=== PATIENT | female | born 1945 | race Caucasian/White ===

== ENCOUNTER 2020-01-19 18:18 | Emergency (ER) | payer MEDICARE, SELFPAY ==
--- NOTE | 2020-01-19 | ECG_ITS ---
Measurements Intervals [place] Rate: 74 P: 11 KS: 166 QRS: -24 QRSD: 85 T: 28 QT: 362 QTc: 404 Interpretive Statements SINUS RHYTHM WITH MARKED SINUS ARRHYTHMIA DELAYED PRECORDIAL R/S TRANSITION LOW QRS VOLTAGE IN PRECORDIAL LEADS BORDERLINE ECG Electronically Signed On 01-20-2020 7:22:43 PRODUCTION DESIGNER by Carlos Tomas D.O.
--- NOTE | ~2020-01-19 | XR_ITS ---
EXAMINATION: XR chest 1V portable DATE: 01/19/2020 18:45 INDICATION: Shortness of breath, cough, fever and weakness TECHNIQUE: frontal view of the chest was obtained. COMPARISON: Chest radiograph dated 02/08/2019 FINDINGS: Chronic mild eventration along the right hemidiaphragm. Bronchial wall thickening and increased prima rily interstitial pattern in the bilateral perihilar regions and lower lung zones. No focal airspace opacity in the left lower lung zone projecting across the heart. No pleural effusion or pneumothorax. The cardiomediastinal silhouette is normal. Cholecystectomy clips in right upper quadrant. Moderate thoracolumbar spondylosis. IMPRESSION: 1. Bronchial wall thickening and increased predominantly interstitial opacities in bilateral perihila r and lower lung zones. Differential would include pneumonia, pulmonary edema, reactive airway diseas e/asthma, atelectasis or some combination thereof. Reviewed, dictated and finalized at [facility]. S PLANNING ANALYST IMPRESSION: 1. Bronchial wall thickening and increased predominantly interstitial opacities in bilateral perihilar and lower lung zones. Differential would include pneumo brandon, pulmonary edema, reactive airway disease/asthma, atelectasis or some combi nation thereof.
--- NOTE | ~2020-01-19 | CT_ITS ---
EXAMINATION: CT brain wo con DATE: 01/19/2020 19:40 INDICATION: Fever with lethargy and weakness. TECHNIQUE: Computed tomography (CT) of the head was performed without intravenous contrast. Sagittal and coronal reconstructions were performed. The mA was adjusted according to patient size. Iterative reconstruction technique was employed. The dose-length product was 681.00 mGy-cm. COMPARISON: head CT dated 02/08/2019 FINDINGS: No acute intracranial hemorrhage, acute infarction or abnormal extra axial fluid collection. There is mild scattered white matter hypoattenuation consistent with chronic small vessel ischemic disease. S ymmetric prominence of the sulci consistent with mild age-appropriate diffuse cerebral volume loss. Ventricles are normal and symmetric. No mass/mass effect. Changes of bilateral intraocular lens repla cement. Partial opacification of an anterior right ethmoid air cell. Mastoid air cells and middle ear cavities are clear. IMPRESSION: 1. No acute intracranial process. 2. Age-related changes including mild diffuse on loss and mild scattered white matter hypoattenuation consistent with chronic small vessel ischemic disease. Reviewed, dictated and finalized at location H. ETARY SPECIALIST
[2020-01-19 18:17] VITALS: BP 115/57; PULSE 77; RESP 17; TEMP 36.9; O2SAT 97
[2020-01-19 18:26] VITALS: PULSE 80
--- NOTE | 2020-01-19 18:27 | PC.NURSE ---
Doris Arreguin (daughter)
[2020-01-19 18:39] LABS: Basophils Percent Auto 0.4 % (0.2-1.2); Eosinophils Absolute Auto 0.1 K/mm3 (0-0.3); Hematocrit 34.9 % (37.0-47.0); Hemoglobin 11.3 g/dL (12.0-15.0); Immature Granulocyte Absolute 0.02 K/mm3 (0.00-0.031); Immature Granulocyte Percent A 0.3 % (0-0.5); Lymphocytes Absolute Auto 1.15 K/mm3 (0.9-3.2); Lymphocytes Percent Auto 16.6 % (18.3-44.2); Mean Corpuscular HGB Conc 32.4 g/dl (32-36); Mean Corpuscular Volume 86.4 fl (80-100); Mean Platelet Volume 10.3 fl (7.4-10.4); Monocytes Absolute Auto 0.8 K/mm3 (0.1-0.6); Monocytes Percent Auto 11.1 % (2.6-8.5); Neutrophils Absolute Auto 4.9 K/mm3 (1.3-6.7); Neutrophils Percent Auto 70.6 % (45.5-73.1); Platelet Count Result 172 k/mm3 (150-375); Red Blood Count 4.04 M/mm3 (4.2-5.4); Red Cell Distribution Width 13.5 % (11.5-14.5); White Blood Count 6.9 K/mm3 (4.5-10.0)
[2020-01-19 18:46] VITALS: BP 111/62; PULSE 82; RESP 26
[2020-01-19 18:52] LABS: Alanine Aminotransferase 16 U/L (4-35); Albumin Level 4.3 g/dL (3.5-5.1); Alkaline Phosphatase 66 U/L (38-126); Anion Gap 10 mmol/L (8-16); Aspartate Amino Transferase 27 U/L (14-36); Bilirubin,Total 0.1 mg/dL (0.2-1.3); Blood Urea Nitrogen 17 mg/dL (7-17); Calcium 9.5 mg/dL (8.4-10.2); Carbon Dioxide 24 mmol/L (22-30); Chloride 105 mmol/L (98-107); Estimated Glomerular Filt Rate > 60; Glucose 171 mg/dL (65-105); Potassium 4.2 mmol/L (3.4-5.0); Sodium 139 mmol/L (137-145)
--- NOTE | 2020-01-19 19:12 | ED.GENADULT ---
HPI - General Adult General Chief complaint: Unspecified Stated complaint: WEAKNESS Time Seen by Provider: 01/19/20 18:28 Source: patient History of Present Illness HPI narrative: Patient is a 74 y/o female complaining of severe generalized weakness starting 1-2 hours ago. There is no alleviating or exacerbating factor. She states that she had difficulty with standing up. She is normally able to ambulate with a cane. She has nausea, but not vomiting. She denies any chest pain, SOB or passing out. She was tested for COVID today. Related Data Home Medications Medication Instructions Recorded Confirmed insulin glargine [Lantus Solostar SUBCUT 01/19/20 U-100 Insulin] lisinopril 01/19/20 metformin mg 01/19/20 sertraline mg 01/19/20 simvastatin mg 01/19/20 Allergies Allergy/AdvReac Type Severity Reaction Status Date / Time hydrocodone AdvReac Intermediate Unknown Verified 01/19/20 18:21 Review of Systems Constitutional: Constitutional: Denies chills, Denies fever(s), Denies headache(s) and Reports weakness Eyes: Eyes: Denies blurry vision ENT: Denies headache(s) and Denies neck pain Cardiovascular: Cardiovascular: Denies chest pain and Denies dyspnea Respiratory: Respiratory: Denies cough and Denies dyspnea Gastrointestinal: Gastrointestinal: Denies abdominal pain, Denies diarrhea, Reports nausea and Denies vomiting Genitourinary: Genitourinary: Denies hematuria and Denies dysuria Musculoskeletal: Musculoskeletal: Reports back pain and Denies neck pain Neurologic: Denies headache(s) and Reports weakness PMFSH Past Medical History Medical History Depression Diabetes Pneumonia Wrist fracture Surgical History Surgical History History of cholecystectomy Social History Social History Smoking status: Never smoker Gender identity (if verbalized by the patient): Female Exam Const: General: no acute distress and well developed Orientation/consciousness: oriented to person, oriented to place, oriented to time and patient oriented x3 HENMT: Head: normocephalic Ears: external ears normal General nose exam: Normal external nose present Eyes: General: appearance normal, both eyes and all related structures Conjunctivae: conjunctivae normal Neck: Neck: normal visual inspection and full ROM Chest: Chest palpation & inspection: normal inspection of the chest and no tenderness Resp: Effort & Inspection: normal respiratory effort Auscultation: clear to auscultation bilaterally Cardio: Rate: regular rate Rhythm: regular rhythm GI: GI Palp: No abdominal tenderness and Yes Soft to palpation Skin: General skin exam: normal color and turgor normal Neuro: General: oriented to person, oriented to place, oriented to time and patient oriented x3 Cognition (Neuro): normal cognition Extrem: General: normal to inspection, full ROM and no pedal edema Psych: Appearance: grossly normal Mental Status: mental status grossly normal Affect: normal affect Course Vital Signs Vital signs: Vital Signs Temperature 36.9 C 01/19/20 18:17 Pulse Rate 77 01/19/20 18:17 Respiratory Rate 17 01/19/20 18:17 Blood Pressure 115/57 L 01/19/20 18:17 Pulse Oximetry 97 01/19/20 18:17 Temperature 36.9 C 01/19/20 18:17 Pulse Rate 67 01/20/20 00:30 Respiratory Rate 17 01/20/20 00:30 Blood Pressure 114/64 01/20/20 00:30 Pulse Oximetry 98 01/20/20 00:30 Medical Decision Making Vital Signs Vital Signs: Vital Signs Temperature 36.9 C 01/19/20 18:17 Pulse Rate 77 01/19/20 18:17 Respiratory Rate 17 01/19/20 18:17 Blood Pressure 115/57 L 01/19/20 18:17 Pulse Oximetry 97 01/19/20 18:17 Temperature 36.9 C 01/19/20 18:17 Pulse Rate 67 01/20/20 00:30 Respiratory Rate 17 01/20/20 00:30 Blood Pressure
[2020-01-19 19:42] LABS: Add Urine Microscopic? YES; Appearance Urine Cloudy (Clear); Bacteria Urine Trace /hpf; Bilirubin Urine Negative (Negative); Blood Urine Negative (Negative); Color Urine Yellow (Yellow); Glucose Urine UA Negative (Negative); Ketones Urine Trace mg/dL (Negative); Leukocyte Esterase Ur Negative LEU/UL (Negative); Mucus Urine Rare /lpf; Nitrate Urine Positive (Negative); Protein Urine Negative (Negative); RBC Urine 0-2 /hpf (0-2); Specific Grav Ur 1.019 (1.001-1.035); Squamous Epithelial Cell Urine Many /hpf (Few); Urobilinogen Urine Negative mg/dL (<2.0); WBC Urine 0-3 /hpf
[2020-01-19 22:06] LABS: D Dimer 0.33 ug/mL (<0.48)
[2020-01-19 22:41] LABS: Troponin I < 0.012 ng/mL (0.000-0.034)
[2020-01-19 23:45] VITALS: BP 126/48
[2020-01-20 00:30] VITALS: BP 114/64; PULSE 62; PULSE 67; RESP 16; RESP 17; O2SAT 98
--- NOTE | 2020-01-20 01:06 | PC.NURSE ---
2330 pt. in no acute distress, skin signs and respirations WNL. Awaiting dispo.
== END 2020-01-20 00:30 | disposition home or self-care (01) ==
PROVIDERS: Family Medicine; Emergency Provider Emergency Medicine
DX: R53.1 Weakness (principal); F32.9 Major depressive disorder, single episode, unspecified; E11.9 Type 2 diabetes mellitus without complications; Z79.4 Long term (current) use of insulin
CPT/HCPCS: 36415; 70450; 71045; 80053; 81001; 84484; 85025; 85380; 93005; 99284

== ENCOUNTER 2020-02-13 13:24 | Emergency (ER) | payer MEDICARE, SELFPAY ==
--- NOTE | ~2020-02-13 | CT_ITS ---
EXAMINATION: CT brain wo con, CT cervical spine wo con EXAM DATE: 02/13/2020 14:52 INDICATION: Fall, head injury. TECHNIQUE: Spiral CT of the head was performed without contrast. Axial, coronal and sagittal images were reviewed. Spiral CT of the cervical spine was performed without contrast. Axial images were rev iewed. Coronal and sagittal reformatted images were also reviewed. The dose-length product (DLP) fo r this examination was 681.00 mGy-cm. The exposure was tailored according to patient size, and itera tive reconstruction (ASIR) was used as additional dose reduction technique. Comparison is made to golden or examination from 01/19/2020. FINDINGS: HEAD CT: There is no acute intraparenchymal hemorrhage. No evidence of intraparenchymal brain mass l esion. No evidence of acute infarction. There is moderate cerebral atrophy. There is no mass effect or midline shift. There is no obstructive hydrocephalus suspected. There are no extra-axial collect ions. There are no acute calvarial fractures. Patient has had bilateral ocular lens surgery. Soft tissue is unremarkable. The visualized sinuses and mastoid air cells are well aerated. CERVICAL CT: Bridging cervical endplate osteophytes from C4 through T1 without break. There is no francisca dence of acute cervical fracture. The odontoid process is intact. Pre-dens space is normal. Prever tebral soft tissue is normal. There are no soft tissue abnormalities identified. There is no disc s pace widening or traumatic vertebral body subluxation suspected. Small amount of ill-defined apical airspace disease. Overall mild to moderate cervical arthropathy. A detailed level by level evaluatio n of spondylosis can be added as addendum if requested. IMPRESSION: 1. No acute intracranial findings or cervical fracture. 2. Small amount of nonspecific biapical airspace disease, could be chronic, but acute edema or pneum onia not excludable. Reviewed, dictated and finalized at location A. UET CHEF IMPRESSION: 1. No acute intracranial findings or cervical fracture. 2. Small amount of nonspecific biapical airspace disease, could be chronic, bu t acute edema or pneumonia not excludable.
--- NOTE | ~2020-02-13 | XR_ITS ---
EXAMINATION: XR elbow RT min 3V EXAM DATE: 02/13/2020 14:28 INDICATION: pain, GENERALIZED PAIN AFTER FALL . Initial encounter. TECHNIQUE: Right elbow frontal, lateral with flexion, and oblique projections obtained and reviewed. There is no prior study for comparison. FINDINGS: Right elbow anterior humeral line intact. There are no acute fractures or dislocations gregorio ntified. There is no subcutaneous gas. The soft tissue is unremarkable. There are no radiopaque f oreign bodies. IMPRESSION: No acute osseous findings. Reviewed, dictated and finalized at location A. IED ANTHROPOLOGIST IMPRESSION: No acute osseous findings.
--- NOTE | ~2020-02-13 | XR_ITS ---
EXAMINATION: XR wrist RT min 3V EXAM DATE: 02/13/2020 14:28 INDICATION: fall , deformity initial encounter. TECHNIQUE: Right wrist frontal, oblique and lateral projections obtained and reviewed. There is no prior study for comparison. FINDINGS: There is acute closed posttraumatic comminuted fracture of the right radial distal metaphys is into the joints. Mild posterior angulation and displacement. There is acute closed posttraumatic u lnar styloid base avulsion which is nondisplaced. There is overlying soft tissue swelling. Bones appe ar osteopenic. IMPRESSION: 1. Acute comminuted right radial distal metaphyseal fracture into joints. 2. Acute nondisplaced ulnar styloid avulsion. Reviewed, dictated and finalized at location A. INSTRUCTOR
[2020-02-13 13:31] VITALS: BP 144/77; PULSE 76; RESP 18; TEMP 36.6; O2SAT 95
--- NOTE | 2020-02-13 13:58 | ED.FALL ---
HPI - Fall General Chief Complaint: Fall Stated Complaint: fall Time Seen by Provider: 02/13/20 13:31 Source: patient Mode of arrival: EMS Limitations: no limitations History of Present Illness HPI Narrative: This patient is a 74 year old female who presents for evaluation of right wrist pain s/p fall. Patient states she was trying to dress when her slippers caused her to fall backwards. She reports he hit the back of her head. She denies LOC, headache, nausea or dizziness. She reports pain to right elbow and right wrist. She reports she takes aspirin daily. Related Data Home Medications Medication Instructions Recorded Confirmed insulin glargine [Lantus Solostar SUBCUT 01/19/20 U-100 Insulin] lisinopril 01/19/20 metformin mg 01/19/20 sertraline mg 01/19/20 simvastatin mg 01/19/20 Allergies Allergy/AdvReac Type Severity Reaction Status Date / Time hydrocodone AdvReac Intermediate Hallucinati Verified 02/13/20 13:40 ng Review of Systems Review of Systems: All systems reviewed & are unremarkable except as noted in HPI and below PMFSH Past Medical History Medical History Depression Diabetes Pneumonia Wrist fracture Surgical History Surgical History History of cholecystectomy Social History Social History Smoking status: Never smoker Gender identity (if verbalized by the patient): Female Exam Const: General: no acute distress and alert Orientation/consciousness: patient oriented x3 HENMT: Head: normocephalic and atraumatic Face and sinus: face symmetric Mouth: Yes Normal oral and palatal mucosa present, Yes lip normal, Yes oropharynx normal and Yes moist mucous membranes Eyes: Pupils: Equal, round and reactive pupils present EOM: EOMs intact bilaterally Neck: Other: in cervical collar Resp: Effort & Inspection: normal respiratory effort and no retractions Auscultation: clear to auscultation bilaterally Cardio: Rate: regular rate Rhythm: regular rhythm Heart sounds: no murmurs GI: GI Palp: Yes Soft to palpation, No Tenderness to palpation present (GI), No Guarding due to palpation present (GI) and No Rigid due to palpation Auscultation: normal bowel sounds Skin: General skin exam: normal color Rashes: no rashes Neuro: General: patient oriented x3 and moves all extremities Extrem: Other: right wrist in splint with wrist deformity and bruising. able to move fingers , sensation intact. palpable radial pulse Psych: Mental Status: mental status grossly normal Affect: normal affect Course Reevaluation(s) Reevaluation #1: Patient was placed in sugar tong splint. She is able to ambulate without assistance Date: 02/13/20 Time: 17:16 Consultations Consultation #1: I discussed xray with Dr. Gaines. He recommends placing in splint and to follow up as an outpatient. Date: 02/13/20 Time: 15:36 Vital Signs Vital signs: Vital Signs Temperature 97.8 F 02/13/20 13:31 Pulse Rate 76 02/13/20 13:31 Respiratory Rate 18 02/13/20 13:31 Blood Pressure 144/77 H 02/13/20 13:31 Pulse Oximetry 95 02/13/20 13:31 Temperature 97.9 F 02/13/20 17:57 Pulse Rate 69 02/13/20 17:57 Respiratory Rate 18 02/13/20 17:57 Blood Pressure 137/80 02/13/20 17:57 Pulse Oximetry 99 02/13/20 17:57 Procedures Orthopedic Splinting/Casting Injury #1: Splinting/Casting Date: 02/13/20 Splinting/Casting Time: 16:00 Side: right Upper Extremity Injury Location: wrist Upper Extremity Immobilizer: sugar tong splint Splint: customized in ED OCL: short arm Pre-Procedure Neuro Vascular Exam: normal Post-Procedure Neuro Vascular Exam: normal MDM - Fall Imaging Data Radiologist's impression: ITS Impressions Wrist X-Ray 02/13/20 14:39 IMPRESSION:
[2020-02-13 15:32] VITALS: BP 143/77; PULSE 74; RESP 18; O2SAT 100
[2020-02-13 17:57] VITALS: BP 137/80; PULSE 69; RESP 18; TEMP 36.6; O2SAT 99
== END 2020-02-13 18:02 | disposition home or self-care (01) ==
PROVIDERS: Emergency Provider General Practice; PCP Family Medicine
DX: S59.291A Other physeal fracture of lower end of radius, right arm, initial encounter for closed fracture (principal); S52.614A Nondisplaced fracture of right ulna styloid process, initial encounter for closed fracture; Z86.19 Personal history of other infectious and parasitic diseases; F32.9 Major depressive disorder, single episode, unspecified; E11.9 Type 2 diabetes mellitus without complications; Z79.4 Long term (current) use of insulin; Z79.82 Long term (current) use of aspirin; W01.0XXA Fall on same level from slipping, tripping and stumbling without subsequent striking against object, initial encounter
CPT/HCPCS: 29125; 70450; 72125; 73080; 73110; 96365; 99284; A4565; J0131

== ENCOUNTER 2020-02-29 13:51 | Outpatient (CLI) | payer MEDICARE, SELFPAY ==
--- NOTE | ~2020-02-29 | CT_ITS ---
EXAMINATION: CT abdomen pelvis w con DATE: 02/29/2020 14:35 INDICATION: Abnormal weight loss TECHNIQUE: Computed tomography (CT) of the abdomen and pelvis was performed with 100 cc Omnipaque 350 intravenous contrast. The dose-length product was 437.93 mGy-cm. Automated exposure control and iter ative reconstruction technique were employed. COMPARISON: None. FINDINGS: Bibasilar dependent atelectasis. Heart size normal. No significant pleural or pericardial e ffusion. There is atherosclerosis of the aorta without aneurysm. No lymphadenopathy. Status post cholecystectomy with expected prominence of the bile ducts. Fatty infiltration of the reza er. There are calcified granulomas of the spleen. There is pancreatic atrophy with pancreatic calcifi cations, consistent with chronic pancreatitis. The adrenal glands and left kidney are unremarkable. T here are right renal cysts, largest measuring 4.8 cm. Moderate osteoarthritis of the hips. Moderate-s evere lumbar spondylosis. No osteolytic or osteoblastic lesions. Nonobstructive bowel gas pattern. Colonic diverticulosis without evidence for diverticulitis. IMPRESSION: 1. No acute abdominal abnormality. No findings to account for patient's symptoms. Reviewed, dictated and finalized at location A. RETE BLOCK MAKER IMPRESSION: 1. No acute abdominal abnormality. No findings to account for patient's symptom s.
[2020-02-29 14:28] LABS: Estimated Glomerular Filt Rate > 60
== END 2020-02-29 13:52 | disposition home or self-care (01) ==
DX: R63.4 Abnormal weight loss (principal)
CPT/HCPCS: 74177; Q9967

== ENCOUNTER 2021-06-01 16:07 | Inpatient (IN) | payer MEDICARE, SELFPAY ==
[2021-06-01] VITALS (16 sets, daily range): BP systolic 121–142; BP diastolic 56–73; PULSE 70–91; RESP 18–27; TEMP 35.9–36.6; O2SAT 96–100; BMI 30.9
--- NOTE | ~2021-06-01 | XR_ITS ---
EXAMINATION: XR chest 1V portable DATE: 06/05/2021 08:19 INDICATION: Pneumonia. TECHNIQUE: A single frontal view of the chest was obtained. COMPARISON: Chest single view 06/01/2021, CT abdomen and pelvis 06/04/2021 FINDINGS: There are airspace opacities at the lung bases. There are small pleural effusions. No pneum othorax. The heart size is normal. IMPRESSION: 1. Worsened airspace opacities at the lung bases, consistent with atelectasis versus pneumonia. 2. Stable small pleural effusions. Reviewed, dictated and finalized at location A. IMPRESSION: 1. Worsened airspace opacities at the lung bases, consistent with atelectasis v ersus pneumonia. 2. Stable small pleural effusions.
--- NOTE | ~2021-06-01 | XR_ITS ---
EXAMINATION: XR chest 1V portable DATE: 06/01/2021 16:56 INDICATION: Cough. Generalized weakness and dizziness. TECHNIQUE: 01/19/2020 COMPARISON: None FINDINGS: Opacities at the left costophrenic angle with configuration favoring atelectasis over pneumonia. No p ulmonary edema, pleural effusion or pneumothorax. The cardiomediastinal silhouette is normal. Cholecy stectomy clips in right upper quadrant. IMPRESSION: 1. Opacities in the left costophrenic angle and favor lingular atelectasis over pneumonia. Reviewed, dictated and finalized at location B.
--- NOTE | ~2021-06-01 | XR_ITS ---
EXAMINATION: XR chest 1V portable INDICATION: Pneumonia TECHNIQUE: Portable AP chest at 0541 hours COMPARISON: 06/05/2021 FINDINGS: Bibasilar airspace opacities persist but have improved. Small pleural effusions are stable. There is no pneumothorax. The cardiomediastinal silhouette is normal. A healed left proximal humerus fracture is noted. IMPRESSION: 1. Improved bibasilar airspace opacities, consistent with atelectasis versus pneumonia. 2. Small pleural effusions. Reviewed, dictated and finalized at location A. IMPRESSION: 1. Improved bibasilar airspace opacities, consistent with atelectasis versus pn eumonia. 2. Small pleural effusions.
--- NOTE | ~2021-06-01 | CT_ITS ---
EXAMINATION: CT abdomen pelvis wo con EXAM DATE: 06/04/2021 11:18 INDICATION: Abdominal pain. Decreased appetite. TECHNIQUE: Spiral CT of the abdomen and pelvis was performed without contrast. Axial, coronal and s agittal images of the abdomen and pelvis were reviewed. The dose-length product (DLP) for this exami nation was 971.14 mGy-cm. The exposure was tailored according to patient size (auto mA exposure cont rol), and iterative reconstruction (ASIR) was used as additional dose reduction technique. Comparison is made to prior examination from 02/29/2020. FINDINGS: The liver, spleen, adrenal glands and pancreas are unremarkable. There are cholecystectom y clips. There is no nephrolithiasis or hydronephrosis. There are 2 right renal cysts up to 4 cm. No ureteral stones. The uterus is unremarkable. The bladder is unremarkable. There is no retroperit cueva or pelvic lymphadenopathy. The appendix is not positively visualized. There is no pericecal inflammatory change to suggest appe ndicitis. There is moderate sigmoid predominant colonic diverticulosis. There is no adjacent inflam matory change to suggest diverticulitis. The stomach and small bowel are unremarkable. There is e xpected amount of colonic stool. No free intraperitoneal gas. There is small pericardial effusions. There is adjacent dependent subsegmental atelectasis. Heart normal in size. No pericardial effusion. There are no osteoblastic or osteolytic lesions identified. Large hemangioma within T10 vertebral b mike. IMPRESSION: 1. Moderate sigmoid predominant diverticulosis. 2. Small pleural effusions, adjacent subsegmental atelectasis. Reviewed, dictated and finalized at location A.
--- NOTE | ~2021-06-01 | CT_ITS ---
EXAMINATION: CT brain wo con DATE: 06/01/2021 16:53 INDICATION: Headache. Generalized weakness. Intermittent dizziness. TECHNIQUE: Computed tomography (CT) of the head was performed without intravenous contrast. The mA wa s adjusted according to patient size. Iterative reconstruction technique was employed. Exam dose: 60 5.33 mGy-cm total exam DLP. COMPARISON: 02/13/2020 CT brain FINDINGS: Bilateral carotid siphon internal carotid artery calcifications. There is nonspecific dimin ished attenuation of the cerebral white matter, likely due to chronic small vessel ischemic changes. There is moderately prominent cerebral and cerebellar volume loss. No intracranial mass lesion or hemorrhage or cerebrovascular accident is detected. There is no midlin e shift or mass effect effect. No subdural or epidural hematoma. No fracture or bone destruction of the cranial vault. The mastoid air cells and included paranasal si nuses are unremarkable. IMPRESSION: Cerebral atherosclerosis and chronic small vessel ischemic changes of the cerebral white matter Moderate cerebral and cerebellar volume loss No acute intracranial finding or significant change since 02/12/2020 Reviewed, dictated and finalized at Location [facility]. Reviewed, dictated and finalized at location A.
--- NOTE | 2021-06-01 16:19 | ECG_ITS ---
Measurements Intervals [place] Rate: 88 P: -4 NE: 149 QRS: -23 QRSD: 90 T: 10 QT: 319 QTc: 387 Interpretive Statements SINUS RHYTHM WITH SINUS ARRHYTHMIA BORDERLINE LEFT AXIS DEVIATION [QRS AXIS < -20] BORDERLINE ECG COMPARED TO ECG 01/19/2020 18:24:28 NO SIGNIFICANT CHANGES Electronically Signed On 06-02-2021 11:09:36 CDT by Linus Alcantara M.D.
--- NOTE | 2021-06-01 16:20 | ED.WEAKNESS ---
HPI - Weakness General Chief complaint: Weakness Stated complaint: weakness Time Seen by Provider: 06/01/21 16:11 Source: patient and family History of Present Illness HPI Narrative: Patient presents with generalized weakness. Patient reports she has been ill and weak for the past few days with a mild cough today she really has an 8-month so she is brought to the ER for evaluation. Patient does report a headache over this time she has not noted fevers. There have not been any known sick contacts she denies nausea but does report decreased appetite. She denies any chest pain or abdominal pain she denies any diarrhea or urinary symptoms she denies any focal weakness. Patient reports she has been unable to walk because she is too weak Related Data Home Medications Medication Instructions Recorded Confirmed insulin glargine [Lantus Solostar SUBCUT 01/19/20 U-100 Insulin] lisinopril 01/19/20 metformin mg 01/19/20 sertraline mg 01/19/20 simvastatin mg 01/19/20 Allergies Allergy/AdvReac Type Severity Reaction Status Date / Time hydrocodone AdvReac Intermediate Hallucinati Verified 06/01/21 16:20 ng Review of Systems Review of Systems: CONSTITUTIONAL: Denies fever, chills, or sweats. EYES: Denies visual changes, redness, or discharge. ENT: Denies rhinorrhea, congestion, sore throat, or otalgia. CARDIOVASCULAR: Denies chest pain, palpitations, or edema. RESPIRATORY: Denies dyspnea. GASTROINTESTINAL: Denies abdominal pain, nausea, vomiting, or diarrhea. GENITOURINARY: Denies dysuria or hematuria. SKIN: Denies rash or itching. MUSCULOSKELETAL: Denies back pain, joint pain, or myalgia. NEUROLOGIC: Denies numbness, dizziness, or focal weakness. PSYCHIATRIC: Denies anxiety or depression. PMFSH Past Medical History Medical History Depression Diabetes Pneumonia Wrist fracture Surgical History Surgical History History of cholecystectomy Social History Social History Smoking status: Never smoker Gender identity (if verbalized by the patient): Female Exam Narrative: GENERAL: Well-appearing, well-nourished, and in no acute distress. HEAD: Normocephalic, atraumatic. EYES: PERRLA and EOMI. ENT: Nares clear, no rhinorrhea or epistaxis. Mucous membranes moist. NECK: Supple. No masses. No JVD CHEST: Clear to auscultation. No respiratory distress. No wheezes rales or rhonchi HEART: Regular rate and rhythm. No murmur heard. Normal peripheral pulses. ABDOMEN: Soft, nontender, nondistended, normal active bowel sounds. EXTREMITIES: Normal range of motion. No edema. SKIN: Warm, dry, no rash. NEURO: No focal deficits. Alert and oriented x3. PSYCH: Normal mood and affect. Course Reevaluation(s) Reevaluation #1: Patient resting comfortably results and plan reviewed with patient and family patient family are comfortable inpatient plan. Patient will be admitted to the hospitalist team for further management. Date: 06/01/21 Time: 17:36 Vital Signs Vital signs: Vital Signs Pulse Rate 78 06/01/21 16:14 Respiratory Rate 19 06/01/21 16:14 Blood Pressure 134/73 06/01/21 16:14 Pulse Oximetry 98 06/01/21 16:14 Temperature 36.6 C 06/01/21 17:30 Pulse Rate 79 06/01/21 18:30 Respiratory Rate 22 H 06/01/21 18:30 Blood Pressure 123/66 06/01/21 17:46 Pulse Oximetry 100 06/01/21 18:15 MDM - Weakness MDM Narrative Medical decision making narrative: Patient presented with generalized weakness getting progressively worse and difficulty ambulating today due to the severity of her weakness. Patient did not appear to be in any acute distress exam was reassuring labs and imaging obtained. Labs notable for leukocytosis and significant elevation in creatinine like representing acute kidney injury UA was also concerning for infe
[2021-06-01 16:28] LABS: Glucose Point of Care 418 mg/dl (65-105)
[2021-06-01 16:42] LABS: Alveolar/Arterial O2 Gradient 47.8 mmHg; Base Excess ABG -3.3 mEq/l (+/-2.0); Fractional Inspired Oxygen 21 %; HCO3 ABG 20.2 mEq/l (22.0-26.0); Oxygen Content ABG 15.1 %vol (16.0-22.0); Oxygen Saturation ABG 93.5 % (95.0-100.0); Oxyhemoglobin 92.6 % THb (90.0-100.0); PCO2 ABG 31.1 mmHg (35.0-45.0); PO2 ABG 64.7 mmHg (80.0-100.0); PO2 FiO2 Ratio Arterial Blood 3.08 %; Total Hemoglobin 11.6 g/dL (12.0-18.0)
[2021-06-01 16:43] LABS: Basophils Absolute Auto 0.1 K/mm3 (0.0-0.1); Basophils Percent Auto 0.3 % (0.2-1.2); Eosinophils Percent Auto 0.1 % (0-4.4); Hematocrit 39.3 % (37.0-47.0); Hemoglobin 12.2 g/dL (12.0-15.0); Immature Granulocyte Absolute 0.16 K/mm3 (0.00-0.031); Immature Granulocyte Percent A 0.8 % (0-0.5); Immature Platelet Fraction Pct 3.4 % (0.9-11.2); Lymphocytes Absolute Auto 0.74 K/mm3 (0.9-3.2); Lymphocytes Percent Auto 3.9 % (18.3-44.2); Mean Corpuscular Hemoglobin 26.9 pg (26-34); Mean Corpuscular Volume 86.8 fl (80-100); Mean Platelet Volume 10.6 fl (7.4-10.4); Monocytes Absolute Auto 1.2 K/mm3 (0.1-0.6); Monocytes Percent Auto 6.1 % (2.6-8.5); Neutrophils Absolute Auto 16.8 K/mm3 (1.3-6.7); Neutrophils Percent Auto 88.8 % (45.5-73.1); Platelet Count Result 239 k/mm3 (150-375); Red Blood Count 4.53 M/mm3 (4.2-5.4); Red Cell Distribution Width 12.3 % (11.5-14.5)
[2021-06-01 16:46] LABS: Device ROOM AIR; Site Drawn LEFT BRACHIAL
[2021-06-01 16:50] LABS: Lactic Acid Reflex 1.8 mmol/L (0.7-2.1)
[2021-06-01 16:52] LABS: Alanine Aminotransferase 13 U/L (4-35); Albumin Level 3.8 g/dL (3.5-5.1); Alkaline Phosphatase 199 U/L (38-126); Anion Gap 13 mmol/L (8-16); Aspartate Amino Transferase 20 U/L (14-36); Bilirubin,Total 0.7 mg/dL (0.2-1.3); Blood Urea Nitrogen 44 mg/dL (7-17); Calcium 9.6 mg/dL (8.4-10.2); Carbon Dioxide 18 mmol/L (22-30); Chloride 97 mmol/L (98-107); Estimated CRCL calculation 17 ml/min; Estimated Glomerular Filt Rate 21; Glucose 402 mg/dL (65-110); Magnesium 2.1 mg/dL (1.6-2.3); Potassium 3.9 mmol/L (3.4-5.0); Sodium 128 mmol/L (137-145)
--- NOTE | 2021-06-01 16:53 | PC.NURSE ---
Patient off unit to radiology for head CT.
[2021-06-01 16:54] LABS: Ovalocytes 1+ (NORMAL); Platelet Estimate Adequate (Adequate)
[2021-06-01] MEDS: SODIUM CHLORIDE 0.9% IV 500 ML 999 ML IV CONT (17:08)
[2021-06-01] MEDS: SODIUM CHLORIDE 0.9% IV 1,000 ML 999 ML IV CONT (17:08)
[2021-06-01 17:36] LABS: Add Urine Microscopic? YES; Appearance Urine Cloudy (Clear); Bacteria Urine 4+ /hpf; Bilirubin Urine Negative (Negative); Blood Urine 2+ (Negative); Color Urine Yellow (Yellow); Glucose Urine UA 3+ mg/dL (Negative); Ketones Urine Negative (Negative); Leukocyte Esterase Ur 3+ LEU/UL (Negative); Mucus Urine Rare /lpf; Nitrate Urine Positive (Negative); Protein Urine 2+ mg/dL (Negative); Specific Grav Ur 1.011 (1.001-1.035); Squamous Epithelial Cell Urine Rare /hpf (Few); Urobilinogen Urine Negative mg/dL (<2.0); WBC Clumps Urine Present /HPF; WBC Urine >75 /hpf
[2021-06-01 18:29] LABS: Beta-Hydroxybutyrate/Acetoacetate 0.19 mmol/L (0.02-0.27)
--- NOTE | 2021-06-01 18:55 | ADMGEN ---
This patient, Ramila Adrian, was admitted to 2 Medical Room 260-. Patient/family oriented to hospital policies and general routines including ID bracelet, bed and alarms, visiting hours, pain management, procedures, bathroom and other care routines, personal items, smoking policy, room service/diet, and visiting hours. Information on how to activate the Rapid Response Team has been discussed. Patient/Family are encouraged to report perceived risks to care and to ask questions if they do not understand what they are told or what they should do.
[2021-06-01] MEDS: SODIUM CHLORIDE 0.9% IV 1,000 ML 125 ML IV CONT (19:36)
[2021-06-01 20:18] LABS: Glucose Point of Care 276 mg/dl (65-105)
--- NOTE | 2021-06-01 20:49 | PM.IMHP ---
H&P: HPI History of Present Illness Date/Time: Patient was placed observation status for expected length of stay less than 23 hours for management, will plan to re-evaluate tomorrow for improvement. 06/01/21 20:49 Chief Complaint: Generalized weakness Narrative: Ms. Adrian is a 76-year-old female who presented to the emergency room with complaints of generalized weakness. Patient states that she lives with her granddaughter and that over the last week she has been feeling weaker and not been able to ambulate. Patient states that she did fall to her but on Saturday. Patient denies any loss of consciousness, lightheadedness, dizziness, syncopal, or near syncopal episodes. Patient states she felt like her legs would no longer hold her up. Patient denies any dysuria, hematuria, or urgency. Patient states she does feel like she has had frequency over the last few days. Patient denies any fever or chills. Patient states that she has had an occasional cough that will have yellow sputum production. Patient denies any shortness of breath, chest discomfort, orthopnea, or PND. Patient states she does have a known history of diabetes mellitus, CVA, and depression. Patient states she has not been checking her blood glucose level because when she does not feel well she tends not to check it. Upon evaluation emergency room patient's blood glucose was noted to be 402 on chemistry panel. Review of Systems Review of Systems: A 12 point review of systems was completed patient all pertinent positive and negative per HPI the remainder are unremarkable. [facility] Past Medical History Medical History (Updated 06/01/21 @ 21:02 by Mariluz Hunter APRN) Depression Diabetes Fracture of radius, distal, right, closed Pneumonia Wrist fracture Surgical History Surgical History (Updated 06/01/21 @ 20:59 by Mariluz Hunter APRN) History of cholecystectomy History of tubal ligation Family History Family History (Updated 06/01/21 @ 19:20 by Madiha Centeno RN) Father Acute myocardial infarction Mother Bone cancer Hypertension Social History Social History Smoking status: Never smoker Alcohol intake: never Substance use: never Gender identity (if verbalized by the patient): Female Spiritual care concerns: No Meds Home Medications and Allergies Home Medications Medication Instructions Recorded Confirmed Type lisinopril 5 mg PO DAILY 01/19/20 06/01/21 History sertraline 100 mg PO Q12H 01/19/20 06/01/21 History linagliptin [Tradjenta] 5 mg PO DAILY 06/01/21 06/01/21 History Allergies Allergy/AdvReac Type Severity Reaction Status Date / Time hydrocodone AdvReac Intermediate Hallucinati Verified 06/01/21 16:20 ng Vital Signs Vital Signs - 24 hr 06/01/21 16:14 06/01/21 16:20 06/01/21 16:30 Temperature Pulse Rate 78 91 90 Respiratory Rate 19 22 H 27 H Blood Pressure 134/73 Pulse Oximetry 98 97 98 06/01/21 17:02 06/01/21 17:04 06/01/21 17:15 Temperature Pulse Rate 81 82 84 Respiratory Rate 21 H 23 H Blood Pressure 121/56 L Pulse Oximetry 96 98 06/01/21 17:16 06/01/21 17:30 06/01/21 17:31 Temperature 36.6 C Pulse Rate 85 84 83 Respiratory Rate 27 H 25 H 22 H Blood Pressure 123/59 L 131/58 L Pulse Oximetry 98 96 97 06/01/21 17:45 06/01/21 17:46 06/01/21 17:47 Temperature Pulse Rate 77 84 84 Respiratory Rate 24 H 18 24 H Blood Pressure 123/66 Pulse Oximetry 99 100 99 06/01/21 18:00 06/01/21 18:15 06/01/21 18:30 Temperature Pulse Rate 80 81 79 Respiratory Rate 21 H 24 H 22 H Blood Pressure Pulse Oximetry 99 100 06/01/21 19:47 Temperature 35.9 C L Pulse Rate 82 Respiratory Rate 18 Blood Pressure 142/60 H Pulse Oximetry 97 Exam Narrative: Constitutional: Patient is well-nourished in no acute distress. Patient is alert and oriented x3 HEENT: Moist mucous membranes. No scleral ict
[2021-06-01] MEDS: SERTRALINE HCL 50 MG TABLET 100 MG PO (22:13)
[2021-06-01] MEDS: HEPARIN SODIUM 5,000 UNITS/ML VIAL 5000 UNITS SUB-Q (22:14)
[2021-06-02] VITALS (7 sets, daily range): BP systolic 114–128; BP diastolic 44–56; PULSE 77–88; RESP 18–20; TEMP 35.8–37; O2SAT 94–100
[2021-06-02] MEDS: SODIUM CHLORIDE 0.9% IV 1,000 ML 125 ML IV CONT ×2 (04:00→13:40)
[2021-06-02 05:24] LABS: Basophils Absolute Auto 0.1 K/mm3 (0.0-0.1); Basophils Percent Auto 0.3 % (0.2-1.2); Eosinophils Percent Auto 0.2 % (0-4.4); Hematocrit 32.5 % (37.0-47.0); Hemoglobin 10.4 g/dL (12.0-15.0); Immature Granulocyte Absolute 0.26 K/mm3 (0.00-0.031); Immature Granulocyte Percent A 1.3 % (0-0.5); Lymphocytes Absolute Auto 0.91 K/mm3 (0.9-3.2); Lymphocytes Percent Auto 4.6 % (18.3-44.2); Mean Corpuscular Hemoglobin 27.2 pg (26-34); Mean Corpuscular Volume 84.9 fl (80-100); Mean Platelet Volume 10.5 fl (7.4-10.4); Monocytes Absolute Auto 1.3 K/mm3 (0.1-0.6); Monocytes Percent Auto 6.4 % (2.6-8.5); Neutrophils Absolute Auto 17.2 K/mm3 (1.3-6.7); Neutrophils Percent Auto 87.2 % (45.5-73.1); Platelet Count Result 225 k/mm3 (150-375); Red Blood Count 3.83 M/mm3 (4.2-5.4); Red Cell Distribution Width 12.2 % (11.5-14.5); White Blood Count 19.7 K/mm3 (4.5-10.0)
[2021-06-02 05:34] LABS: Anion Gap 7 mmol/L (8-16); Blood Urea Nitrogen 39 mg/dL (7-17); Calcium 8.5 mg/dL (8.4-10.2); Carbon Dioxide 21 mmol/L (22-30); Chloride 102 mmol/L (98-107); Estimated CRCL calculation 18 ml/min; Estimated Glomerular Filt Rate 23; Glucose 308 mg/dL (65-110); Potassium 3.6 mmol/L (3.4-5.0); Sodium 130 mmol/L (137-145)
[2021-06-02 07:41] LABS: Glucose Point of Care 289 mg/dl (65-105)
[2021-06-02] MEDS: INSULIN ASPART (*BKC) 100 UNITS/ML SUB-Q ×3 (07:46→16:31)
[2021-06-02] MEDS: HEPARIN SODIUM 5,000 UNITS/ML VIAL 5000 UNITS SUB-Q ×2 (07:55→20:08)
[2021-06-02] MEDS: SERTRALINE HCL 50 MG TABLET 100 MG PO ×2 (07:55→20:05)
[2021-06-02] MEDS: lisinopriL 5 MG TABLET PO (07:56)
--- NOTE | 2021-06-02 08:35 | PM.IMPN ---
Progress Note: A&P Assessment and Plan (1) Urinary tract infection: Qualifiers: Hematuria presence: with hematuria Urinary tract infection type: site unspecified Qualified Code(s): N39.0 - Urinary tract infection, site not specified; R31.9 - Hematuria, unspecified Code(s): N39.0 - Urinary tract infection, site not specified Status: Acute Assessment and Plan: -continue Rocephin -await culture and sensitivity results and adjust antibiotic treatment as needed. (2) Acute kidney injury: Code(s): N17.9 - Acute kidney failure, unspecified Status: Acute Assessment and Plan: -baseline appears to be around 0.8 approximately 1 year ago. -Will hydrate patient and continue with antibiotic therapy for urinary tract infection and pneumonia. -daily BMP (3) Weakness: Code(s): R53.1 - Weakness Status: Acute Assessment and Plan: -Most likely secondary to urinary tract infection and pneumonia. -Will continue with current antibiotic regimen. -Will have PT/OT to evaluate and treat for discharge recommendations. (4) Community acquired bacterial pneumonia: Code(s): J15.9 - Unspecified bacterial pneumonia Status: Acute Assessment and Plan: -continue azithromycin and Rocephin -Blood cultures pending (5) Diabetes: Code(s): E11.9 - Type 2 diabetes mellitus without complications Status: Acute Assessment and Plan: -accuchecks, sliding scale, hypoglycemic protocol Subjective Date/time seen: 06/02/21 08:35 Interval history: 76 yo female w/ history of diabetes mellitus, CVA, and depression, admitted for weakness, UTI, FERNANDO, PNA, and hyperglycemia. Today she feels a little better but still pretty weak. Not much of an appetite. No N/V. Some mild diffuse abd pain. No diarrhea. No cp/sob. No urinary symptoms. Review of Systems Review of Systems: All systems reviewed & are unremarkable except as noted in HPI and below Exam Narrative: General: No acute distress, non toxic appearing, elderly Eyes: PERRL, no scleral icterus HEENT: NCAT, external ears normal, MMM, poor dentition with missing teeth Respiratory: No respiratory distress, Lungs CTA bilaterally, no wheezing Cardiovascular: RRR, no murmur Abdominal: Soft, nontender, non distended, no rebound or guarding Musculoskeletal: Moves all 4 extremities, no edema Neurological: A/Ox3, speech clear, no facial asymmetry Skin: Warm, dry, no rashes Psychiatric: Normal affect, normal mood Objective Data Vital Signs Vital Signs: Vital Signs - 24 hr 06/01/21 16:14 06/01/21 16:20 06/01/21 16:30 Temperature Pulse Rate 78 91 90 Respiratory Rate 19 22 H 27 H Blood Pressure 134/73 Pulse Oximetry 98 97 98 06/01/21 17:02 06/01/21 17:04 06/01/21 17:15 Temperature Pulse Rate 81 82 84 Respiratory Rate 21 H 23 H Blood Pressure 121/56 L Pulse Oximetry 96 98 06/01/21 17:16 06/01/21 17:30 06/01/21 17:31 Temperature 98 F Pulse Rate 85 84 83 Respiratory Rate 27 H 25 H 22 H Blood Pressure 123/59 L 131/58 L Pulse Oximetry 98 96 97 06/01/21 17:45 06/01/21 17:46 06/01/21 17:47 Temperature Pulse Rate 77 84 84 Respiratory Rate 24 H 18 24 H Blood Pressure 123/66 Pulse Oximetry 99 100 99 06/01/21 18:00 06/01/21 18:15 06/01/21 18:30 Temperature Pulse Rate 80 81 79 Respiratory Rate 21 H 24 H 22 H Blood Pressure Pulse Oximetry 99 100 06/01/21 19:47 06/02/21 00:00 06/02/21 03:47 Temperature 96.6 F L 97.4 F L 96.5 F L Pulse Rate 82 83 77 Respiratory Rate 18 18 20 Blood Pressure 142/60 H 123/56 L 128/53 L Pulse Oximetry 97 94 98 Intake/Output Intake/Output: Intake & Output 05/30/21 05/31/21 06/01/21 06/02/21 23:59 23:59 23:59 23:59 Intake Total 1800 1240 Balance 1800 1240 Meds/Results Medications: Active Medications Generic Name Dose Route Start Last Admin Trade Name Simeon Ernandez
[2021-06-02 11:54] LABS: Glucose Point of Care 236 mg/dl (65-105)
[2021-06-02 16:25] LABS: Glucose Point of Care 202 mg/dl (65-105)
[2021-06-02 19:49] LABS: Glucose Point of Care 267 mg/dl (65-105)
[2021-06-03] VITALS (7 sets, daily range): BP systolic 122–148; BP diastolic 46–66; PULSE 77–84; RESP 16–20; TEMP 36.3–37.4; O2SAT 95–99
[2021-06-03] MEDS: SODIUM CHLORIDE 0.9% IV 1,000 ML 125 ML IV CONT ×3 (01:36→20:06)
[2021-06-03 05:36] LABS: Basophils Absolute Auto 0.1 K/mm3 (0.0-0.1); Basophils Percent Auto 0.3 % (0.2-1.2); Eosinophils Absolute Auto 0.1 K/mm3 (0-0.3); Eosinophils Percent Auto 0.5 % (0-4.4); Hematocrit 29.8 % (37.0-47.0); Hemoglobin 9.5 g/dL (12.0-15.0); Immature Granulocyte Percent A 3.8 % (0-0.5); Lymphocytes Absolute Auto 1.73 K/mm3 (0.9-3.2); Lymphocytes Percent Auto 7.3 % (18.3-44.2); Mean Corpuscular HGB Conc 31.9 g/dl (32-36); Mean Corpuscular Hemoglobin 27.6 pg (26-34); Mean Corpuscular Volume 86.6 fl (80-100); Mean Platelet Volume 10.2 fl (7.4-10.4); Monocytes Absolute Auto 1.3 K/mm3 (0.1-0.6); Monocytes Percent Auto 5.6 % (2.6-8.5); Neutrophils Absolute Auto 19.7 K/mm3 (1.3-6.7); Neutrophils Percent Auto 82.5 % (45.5-73.1); Platelet Count Result 242 k/mm3 (150-375); Red Blood Count 3.44 M/mm3 (4.2-5.4); Red Cell Distribution Width 12.5 % (11.5-14.5); White Blood Count 23.8 K/mm3 (4.5-10.0)
[2021-06-03 05:47] LABS: Alanine Aminotransferase 16 U/L (4-35); Albumin Level 2.9 g/dL (3.5-5.1); Alkaline Phosphatase 165 U/L (38-126); Anion Gap 8 mmol/L (8-16); Aspartate Amino Transferase 28 U/L (14-36); Bilirubin,Total 0.6 mg/dL (0.2-1.3); Blood Urea Nitrogen 36 mg/dL (7-17); Calcium 8.6 mg/dL (8.4-10.2); Carbon Dioxide 18 mmol/L (22-30); Chloride 107 mmol/L (98-107); Estimated CRCL calculation 17 ml/min; Estimated Glomerular Filt Rate 21; Glucose 219 mg/dL (65-110); Potassium 3.5 mmol/L (3.4-5.0); Sodium 133 mmol/L (137-145)
[2021-06-03 07:39] LABS: Glucose Point of Care 221 mg/dl (65-105)
[2021-06-03] MEDS: lisinopriL 5 MG TABLET PO (08:04)
[2021-06-03] MEDS: HEPARIN SODIUM 5,000 UNITS/ML VIAL 5000 UNITS SUB-Q ×2 (08:04→20:07)
[2021-06-03] MEDS: SERTRALINE HCL 50 MG TABLET 100 MG PO ×2 (08:04→20:05)
[2021-06-03] MEDS: INSULIN ASPART (*BKC) 100 UNITS/ML SUB-Q ×3 (08:05→16:20)
--- NOTE | 2021-06-03 08:19 | PM.IMPN ---
Progress Note: A&P Assessment and Plan (1) Bacteremia: Code(s): R78.81 - Bacteremia Status: Acute Assessment and Plan: -prelim blood cultures positive for E. Coli, likely secondary to UTI -sensitivity report pending -continue rocephin for now, considered switching abx but pt is improving clinically. WBC did increase a little today but she has not had any fevers or tachycardia. Overall she is improving clinically so will not change anything for now. (2) Urinary tract infection: Qualifiers: Hematuria presence: with hematuria Urinary tract infection type: site unspecified Qualified Code(s): N39.0 - Urinary tract infection, site not specified; R31.9 - Hematuria, unspecified Code(s): N39.0 - Urinary tract infection, site not specified Status: Acute Assessment and Plan: -continue Rocephin -await culture and sensitivity results and adjust antibiotic treatment as needed. (3) Community acquired bacterial pneumonia: Code(s): J15.9 - Unspecified bacterial pneumonia Status: Acute Assessment and Plan: -continue azithromycin and Rocephin (4) Acute kidney injury: Code(s): N17.9 - Acute kidney failure, unspecified Status: Acute Assessment and Plan: -baseline appears to be around 0.8 approximately 1 year ago. -Will hydrate patient and continue with antibiotic therapy for urinary tract infection and pneumonia. -daily BMP (5) Weakness: Code(s): R53.1 - Weakness Status: Acute Assessment and Plan: -Most likely from bacteremia secondary to urinary tract infection and pneumonia. -Will continue with current antibiotic regimen. -PT/OT (6) Diabetes: Code(s): E11.9 - Type 2 diabetes mellitus without complications Status: Acute Assessment and Plan: -accuchecks, sliding scale, hypoglycemic protocol -still running high even with high dose SS, added 11 units of Lantus to start tonight Subjective Date/time seen: 06/03/21 08:19 Interval history: 76 yo female w/ history of diabetes mellitus, CVA, and depression, admitted for weakness, UTI, FERNANDO, PNA, and hyperglycemia. Today pt tells me she is feeling better, less weak. Appetite is improving. No fevers. No cough, cp, sob. No N/V/D/abd pain. Does report dysuria. Got call yesterday with positive prelim blood cultures. Review of Systems Review of Systems: All systems reviewed & are unremarkable except as noted in HPI and below Exam Narrative: General: No acute distress, non toxic appearing, elderly Eyes: PERRL, no scleral icterus HEENT: NCAT, external ears normal, MMM, poor dentition with missing teeth Respiratory: No respiratory distress, Lungs CTA bilaterally, no wheezing Cardiovascular: RRR, no murmur Abdominal: Soft, nontender, non distended, no rebound or guarding Musculoskeletal: Moves all 4 extremities, no edema Neurological: A/Ox3, speech clear, no facial asymmetry Skin: Warm, dry, no rashes Psychiatric: Normal affect, normal mood Objective Data Vital Signs Vital Signs: Vital Signs - 24 hr 06/02/21 14:00 06/02/21 20:00 06/02/21 20:05 Temperature 98.6 F 98.5 F Pulse Rate 88 82 82 Respiratory Rate 18 20 20 Blood Pressure 114/44 L 127/53 L Pulse Oximetry 100 95 95 06/02/21 20:16 06/03/21 00:00 06/03/21 04:45 Temperature 98.5 F 97.9 F Pulse Rate 82 84 Respiratory Rate 20 18 Blood Pressure 127/53 L 139/61 Pulse Oximetry 95 95 97 Intake/Output Intake/Output: Intake & Output 05/31/21 06/01/21 06/02/21 06/03/21 23:59 23:59 23:59 23:59 Intake Total 1800 5380 140 Output Total 300 Balance 1800 5080 140 Meds/Results Medications: Active Medications Generic Name Dose Route Start Last Admin Trade Name Freq PRN Reason Stop Dose Admin Dextrose 12.5 gm 06/01/21 20:33 Dextrose 50% 25 Gm/50 Ml Syringe IV PUSH PRN PRN Hypoglycemia Protocol Glu
[2021-06-03 11:13] LABS: Glucose Point of Care 230 mg/dl (65-105)
[2021-06-03] MEDS: ACETAMINOPHEN 325 MG TABLET 650 MG PO (15:05)
[2021-06-03 16:04] LABS: Glucose Point of Care 224 mg/dl (65-105)
[2021-06-03 19:33] LABS: Glucose Point of Care 285 mg/dl (65-105)
[2021-06-03] MEDS: INSULIN GLARGINE (*BKC) 100 UNITS/ML 11 UNITS SUB-Q (20:06)
[2021-06-04] MEDS: SODIUM CHLORIDE 0.9% IV 1,000 ML 125 ML IV CONT ×3 (03:56→22:12)
[2021-06-04 04:11] VITALS: BP 126/53; PULSE 73; RESP 17; TEMP 37.2; O2SAT 96
[2021-06-04 04:29] VITALS: BP 126/53; PULSE 73; RESP 17; TEMP 37.2; O2SAT 96
[2021-06-04 05:26] LABS: Basophils Absolute Auto 0.1 K/mm3 (0.0-0.1); Basophils Percent Auto 0.4 % (0.2-1.2); Eosinophils Absolute Auto 0.3 K/mm3 (0-0.3); Eosinophils Percent Auto 1.2 % (0-4.4); Hematocrit 28.1 % (37.0-47.0); Hemoglobin 8.9 g/dL (12.0-15.0); Immature Granulocyte Absolute 1.03 K/mm3 (0.00-0.031); Immature Granulocyte Percent A 4.7 % (0-0.5); Lymphocytes Absolute Auto 1.96 K/mm3 (0.9-3.2); Mean Corpuscular HGB Conc 31.7 g/dl (32-36); Mean Corpuscular Hemoglobin 27.4 pg (26-34); Mean Corpuscular Volume 86.5 fl (80-100); Mean Platelet Volume 9.9 fl (7.4-10.4); Monocytes Absolute Auto 1.1 K/mm3 (0.1-0.6); Monocytes Percent Auto 5.1 % (2.6-8.5); Neutrophils Absolute Auto 17.4 K/mm3 (1.3-6.7); Neutrophils Percent Auto 79.6 % (45.5-73.1); Platelet Count Result 249 k/mm3 (150-375); Red Blood Count 3.25 M/mm3 (4.2-5.4); Red Cell Distribution Width 12.7 % (11.5-14.5); White Blood Count 21.9 K/mm3 (4.5-10.0)
[2021-06-04 05:41] LABS: Potassium 3.3 mmol/L (3.4-5.0)
[2021-06-04 05:48] LABS: Anion Gap 6 mmol/L (8-16); Blood Urea Nitrogen 32 mg/dL (7-17); Calcium 8.2 mg/dL (8.4-10.2); Carbon Dioxide 17 mmol/L (22-30); Chloride 112 mmol/L (98-107); Estimated CRCL calculation 19 ml/min; Estimated Glomerular Filt Rate 24; Glucose 208 mg/dL (65-110); Sodium 135 mmol/L (137-145)
[2021-06-04 07:38] LABS: Glucose Point of Care 206 mg/dl (65-105)
[2021-06-04] MEDS: POTASSIUM CHLORIDE 20 MEQ TABLET PO (07:44)
[2021-06-04] MEDS: INSULIN ASPART (*BKC) 100 UNITS/ML SUB-Q ×3 (07:45→16:37)
[2021-06-04 08:00] VITALS: BP 147/60; PULSE 65; RESP 19; O2SAT 98
[2021-06-04] MEDS: lisinopriL 5 MG TABLET PO (08:27)
[2021-06-04] MEDS: SERTRALINE HCL 50 MG TABLET 100 MG PO ×2 (08:27→20:41)
[2021-06-04] MEDS: HEPARIN SODIUM 5,000 UNITS/ML VIAL 5000 UNITS SUB-Q ×2 (08:27→20:41)
[2021-06-04 11:36] LABS: Glucose Point of Care 216 mg/dl (65-105)
--- NOTE | 2021-06-04 11:57 | PM.IMPN ---
Progress Note: A&P Assessment and Plan (1) Bacteremia: Code(s): R78.81 - Bacteremia Status: Acute Assessment and Plan: -prelim blood cultures positive for E. Coli, likely secondary to UTI -sensitivity report pending -continue rocephin for now, considered switching abx but pt is improving clinically. WBC did increase a little today but she has not had any fevers or tachycardia. Overall she is improving clinically so will not change anything for now. - 06/04: Continue to monitor and follow trend. Continue Rocephin according to sensitivity. Monitor VS. (2) Urinary tract infection: Qualifiers: Hematuria presence: with hematuria Urinary tract infection type: site unspecified Qualified Code(s): N39.0 - Urinary tract infection, site not specified; R31.9 - Hematuria, unspecified Code(s): N39.0 - Urinary tract infection, site not specified Status: Acute Assessment and Plan: -continue Rocephin -await culture and sensitivity results and adjust antibiotic treatment as needed. - 06/04: Urine grew out E.coli that is sensitive to Rocephin. Will continue it. (3) Community acquired bacterial pneumonia: Code(s): J15.9 - Unspecified bacterial pneumonia Status: Acute Assessment and Plan: -continue azithromycin and Rocephin - Monitor vitals and trend them. (4) Acute kidney injury: Code(s): N17.9 - Acute kidney failure, unspecified Status: Acute Assessment and Plan: -baseline appears to be around 0.8 approximately 1 year ago. -Will hydrate patient and continue with antibiotic therapy for urinary tract infection and pneumonia. -daily BMP - 06/04: Improving, but not back at baseline yet. Will continue to monitor and hydrate. (5) Weakness: Code(s): R53.1 - Weakness Status: Acute Assessment and Plan: -Most likely from bacteremia secondary to urinary tract infection and pneumonia. -Will continue with current antibiotic regimen. -PT/OT (6) Diabetes: Qualifiers: Diabetes mellitus type: type 2 Diabetes mellitus group home insulin use: without group home use Diabetes mellitus complication status: without complication Qualified Code(s): E11.9 - Type 2 diabetes mellitus without complications Code(s): E11.9 - Type 2 diabetes mellitus without complications Status: Acute Assessment and Plan: -accuchecks, sliding scale, hypoglycemic protocol -still running high even with high dose SS, added 11 units of Lantus to start tonight - 06/04: Continues to remain hyperglycemic, but suspicion is is likely secondary to infection. Will increase Lantus to 15 units tonight. Subjective Date/time seen: 06/04/21 11:57 This patient was examined at the bedside today in interval assessment of her acute bacteremia and urosepsis due to E coli that is sensitive to the Rocephin that she is currently on. Patient is noted to have minimal transient improvement in her leukocytosis today from 20/3 0.8 down to 21.9. There is no acute left shift noted. Patient's vital signs have been stable she is no longer meeting sepsis criteria. Hemoglobin today is slightly decreased as compared to yesterday this is possibly delusional, however it is stable. This will continue to be monitored. Patient does appear to be hypokalemic today 20 mg p.o. x1 is ordered. Her FERNANDO is improving, and she has no new complaints today such as N/V/D/CP/Dyspnea. Review of Systems Review of Systems: All systems reviewed & are unremarkable except as noted in HPI and below Exam Narrative: General: No acute distress, non toxic appearing, elderly Eyes: PERRL, no scleral icterus HEENT: NCAT, external ears normal, MMM, poor dentition with missing teeth Respiratory: No respiratory distress, Lungs CTA bilaterally, no wheezing Cardiovascular: RRR, no murmur Abdominal: Soft, nontender, non distended, no rebound or guarding Musculoskeletal: Move
[2021-06-04 16:15] VITALS: BP 141/65; PULSE 73; RESP 18; TEMP 36.3; O2SAT 98
[2021-06-04 16:27] LABS: Glucose Point of Care 264 mg/dl (65-105)
[2021-06-04 19:43] VITALS: BP 140/60; PULSE 71; RESP 18; TEMP 36.4; O2SAT 99
[2021-06-04 20:24] LABS: Glucose Point of Care 205 mg/dl (65-105)
[2021-06-04] MEDS: INSULIN GLARGINE (*BKC) 100 UNITS/ML 15 UNITS SUB-Q (20:41)
[2021-06-05 03:52] VITALS: BP 149/65; PULSE 74; RESP 16; TEMP 36.5; O2SAT 98
[2021-06-05 05:10] LABS: Basophils Absolute Auto 0.1 K/mm3 (0.0-0.1); Basophils Percent Auto 0.4 % (0.2-1.2); Eosinophils Absolute Auto 0.4 K/mm3 (0-0.3); Eosinophils Percent Auto 1.6 % (0-4.4); Hematocrit 30.7 % (37.0-47.0); Hemoglobin 9.5 g/dL (12.0-15.0); Immature Granulocyte Absolute 0.98 K/mm3 (0.00-0.031); Immature Granulocyte Percent A 4.4 % (0-0.5); Lymphocytes Absolute Auto 2.41 K/mm3 (0.9-3.2); Lymphocytes Percent Auto 10.9 % (18.3-44.2); Mean Corpuscular HGB Conc 30.9 g/dl (32-36); Mean Corpuscular Hemoglobin 27.2 pg (26-34); Mean Platelet Volume 9.8 fl (7.4-10.4); Monocytes Absolute Auto 1.1 K/mm3 (0.1-0.6); Monocytes Percent Auto 4.8 % (2.6-8.5); Neutrophils Absolute Auto 17.2 K/mm3 (1.3-6.7); Neutrophils Percent Auto 77.9 % (45.5-73.1); Platelet Count Result 289 k/mm3 (150-375); Red Blood Count 3.49 M/mm3 (4.2-5.4); Red Cell Distribution Width 12.8 % (11.5-14.5); White Blood Count 22.1 K/mm3 (4.5-10.0)
[2021-06-05 05:19] LABS: Alanine Aminotransferase 19 U/L (4-35); Albumin Level 2.9 g/dL (3.5-5.1); Alkaline Phosphatase 164 U/L (38-126); Anion Gap 7 mmol/L (8-16); Aspartate Amino Transferase 27 U/L (14-36); Bilirubin,Total 0.3 mg/dL (0.2-1.3); Blood Urea Nitrogen 27 mg/dL (7-17); Calcium 8.7 mg/dL (8.4-10.2); Carbon Dioxide 19 mmol/L (22-30); Chloride 114 mmol/L (98-107); Estimated CRCL calculation 18 ml/min; Estimated Glomerular Filt Rate 22; Glucose 113 mg/dL (65-110); Magnesium 1.9 mg/dL (1.6-2.3); Potassium 4.7 mmol/L (3.4-5.0); Sodium 140 mmol/L (137-145)
[2021-06-05] MEDS: SODIUM CHLORIDE 0.9% IV 1,000 ML 125 ML IV CONT ×3 (05:49→23:17)
[2021-06-05 07:37] LABS: Glucose Point of Care 111 mg/dl (65-105)
[2021-06-05 08:00] VITALS: RESP 16; O2SAT 98
[2021-06-05 08:51] LABS: CRP 12.6 mg/dL (<1.0)
[2021-06-05 09:00] VITALS: BP 145/76; PULSE 67; RESP 16; TEMP 36.6; O2SAT 99
[2021-06-05] MEDS: HEPARIN SODIUM 5,000 UNITS/ML VIAL 5000 UNITS SUB-Q ×2 (09:34→20:47)
[2021-06-05] MEDS: SERTRALINE HCL 50 MG TABLET 100 MG PO ×2 (09:34→20:47)
[2021-06-05] MEDS: lisinopriL 5 MG TABLET PO (09:35)
--- NOTE | 2021-06-05 09:55 | PM.IMPN ---
Progress Note: A&P Assessment and Plan (1) Bacteremia: Code(s): R78.81 - Bacteremia Status: Acute Assessment and Plan: -prelim blood cultures positive for E. Coli, likely secondary to UTI -sensitivity reports sensitivity to cephalosporins. Patient is currently on cefepime. Repeat blood cultures (2) Urinary tract infection: Qualifiers: Hematuria presence: with hematuria Urinary tract infection type: site unspecified Qualified Code(s): N39.0 - Urinary tract infection, site not specified; R31.9 - Hematuria, unspecified Code(s): N39.0 - Urinary tract infection, site not specified Status: Acute Assessment and Plan: -continue cefepime - 410: Urine grew out E.coli (3) Community acquired bacterial pneumonia: Code(s): J15.9 - Unspecified bacterial pneumonia Status: Acute Assessment and Plan: -stop Azithromycin and Rocephin, transitioned to vancomycin and cefepime. Ordered an MRSA nasal swab, repeat blood cultures, CRP, legionella, mycoplasma, Chlamydia pneumonia and pneumococcal antigen. - Monitor vitals and trend them. (4) Acute kidney injury: Code(s): N17.9 - Acute kidney failure, unspecified Status: Acute Assessment and Plan: -baseline appears to be around 0.8 approximately 1 year ago. -continue to hydrate patient and continue with antibiotic therapy for urinary tract infection and pneumonia. -daily BMP - 10: Improving, but not back at baseline yet. Will continue to monitor and hydrate. (5) Weakness: Code(s): R53.1 - Weakness Status: Acute Assessment and Plan: -Most likely from bacteremia secondary to urinary tract infection and pneumonia. -Will continue with current antibiotic regimen. -PT/OT (6) Diabetes: Qualifiers: Diabetes mellitus type: type 2 Diabetes mellitus cycle touring guide insulin use: without nursing home use Diabetes mellitus complication status: without complication Qualified Code(s): E11.9 - Type 2 diabetes mellitus without complications Code(s): E11.9 - Type 2 diabetes mellitus without complications Status: Acute Assessment and Plan: -accuchecks, sliding scale, hypoglycemic protocol -still running high even with high dose SS, added 11 units of Lantus to start tonight Continues to remain hyperglycemic, but suspicion is is likely secondary to infection. Lantus at 15 units. Subjective Date/time seen: 04/11/22 09:55 Patient is alert and oriented this morning. She does have persistent leukocytosis. She has been receiving Rocephin and azithromycin with no improvement. Ordered MRSA swab, and pneumococcal, Legionella, mycoplasma pneumoniae and chlamydia pneumoniae. Transition antibiotics to vancomycin and cefepime, repeat blood cultures and CRP. The repeat chest x-ray performed this morning revealed worsening pneumonia. Patient currently denies any additional shortness of breath. She does not require oxygen at this time. Continue to monitor. Trend labs and follow patient's clinical course. Review of Systems Review of Systems: All systems reviewed & are unremarkable except as noted in HPI and below Exam Narrative: General: No acute distress. Mental Status: Awake, alert and oriented to person, place, and time with clear speech. Slow to respond, requires maximum amount of time Skin: Skin in warm, dry and intact without rashes or lesions. Head: Normocephalic and atraumatic. Eyes: Conjunctivae are clear without exudates or hemorrhage. Sclera is non-icteric. EOM are intact, PERRLA. Ears: The external ear and canal are non-tender and without swelling or discharge. Nose: Nasal mucosa is pink and moist. Septum midline. Nares patent bilaterally. Throat: Oral mucosa pink and moist with good dentition. Tongue midline. Neck: The neck supple without adenopathy. Trachea midline. No JVD. Cardiac: S1 and S2 regular rate and rhythm. No murmurs, g
[2021-06-05 11:42] LABS: Glucose Point of Care 150 mg/dl (65-105)
[2021-06-05 16:00] VITALS: BP 149/58; PULSE 68; RESP 18; TEMP 36.9; O2SAT 96
[2021-06-05 16:40] LABS: Glucose Point of Care 176 mg/dl (65-105)
[2021-06-05 20:33] VITALS: BP 149/57; PULSE 74; RESP 18; TEMP 36.2; O2SAT 99
[2021-06-05] MEDS: INSULIN GLARGINE (*BKC) 100 UNITS/ML 15 UNITS SUB-Q (20:46)
[2021-06-05 20:54] LABS: Glucose Point of Care 214 mg/dl (65-105)
[2021-06-06] VITALS: BP 146/54; PULSE 61; RESP 20; TEMP 36.2; O2SAT 98
[2021-06-06 05:07] VITALS: BP 152/54; PULSE 56; RESP 18; TEMP 35.8; O2SAT 99
[2021-06-06] MEDS: ACETAMINOPHEN 325 MG TABLET 650 MG PO (05:15)
[2021-06-06 05:59] LABS: Alanine Aminotransferase 17 U/L (4-35); Albumin Level 2.6 g/dL (3.5-5.1); Alkaline Phosphatase 139 U/L (38-126); Anion Gap 9 mmol/L (8-16); Aspartate Amino Transferase 23 U/L (14-36); Bilirubin,Total 0.3 mg/dL (0.2-1.3); Blood Urea Nitrogen 25 mg/dL (7-17); Calcium 8.2 mg/dL (8.4-10.2); Carbon Dioxide 18 mmol/L (22-30); Chloride 114 mmol/L (98-107); Estimated CRCL calculation 20 ml/min; Estimated Glomerular Filt Rate 26; Glucose 160 mg/dL (65-110); Magnesium 1.7 mg/dL (1.6-2.3); Potassium 3.6 mmol/L (3.4-5.0); Sodium 141 mmol/L (137-145)
[2021-06-06 06:06] LABS: Basophils Absolute Auto 0.1 K/mm3 (0.0-0.1); Basophils Percent Auto 0.5 % (0.2-1.2); Eosinophils Absolute Auto 0.3 K/mm3 (0-0.3); Eosinophils Percent Auto 1.5 % (0-4.4); Hematocrit 29.2 % (37.0-47.0); Hemoglobin 9.3 g/dL (12.0-15.0); Immature Granulocyte Absolute 0.74 K/mm3 (0.00-0.031); Immature Granulocyte Percent A 3.9 % (0-0.5); Lymphocytes Percent Auto 10.9 % (18.3-44.2); Mean Corpuscular HGB Conc 31.8 g/dl (32-36); Mean Corpuscular Hemoglobin 27.4 pg (26-34); Mean Corpuscular Volume 86.1 fl (80-100); Mean Platelet Volume 9.9 fl (7.4-10.4); Monocytes Absolute Auto 0.8 K/mm3 (0.1-0.6); Monocytes Percent Auto 4.4 % (2.6-8.5); Neutrophils Absolute Auto 15.1 K/mm3 (1.3-6.7); Neutrophils Percent Auto 78.8 % (45.5-73.1); Platelet Count Result 305 k/mm3 (150-375); Red Blood Count 3.39 M/mm3 (4.2-5.4); Red Cell Distribution Width 12.8 % (11.5-14.5); White Blood Count 19.2 K/mm3 (4.5-10.0)
[2021-06-06 07:51] LABS: Glucose Point of Care 144 mg/dl (65-105)
[2021-06-06] MEDS: SODIUM CHLORIDE 0.9% IV 1,000 ML 125 ML IV CONT ×2 (08:09→17:13)
[2021-06-06 08:55] VITALS: RESP 18; O2SAT 99
[2021-06-06] MEDS: HEPARIN SODIUM 5,000 UNITS/ML VIAL 5000 UNITS SUB-Q ×2 (09:02→20:28)
[2021-06-06] MEDS: lisinopriL 5 MG TABLET PO (09:03)
[2021-06-06] MEDS: SERTRALINE HCL 50 MG TABLET 100 MG PO ×2 (09:03→20:28)
--- NOTE | 2021-06-06 09:51 | PM.IMPN ---
Progress Note: A&P Assessment and Plan (1) Bacteremia: Code(s): R78.81 - Bacteremia Status: Acute Assessment and Plan: -prelim blood cultures positive for E. Coli, likely secondary to UTI -sensitivity reports sensitivity to cephalosporins. Patient is currently on cefepime. Repeat blood cultures (06/05/2021), negative to date (2) Urinary tract infection: Qualifiers: Hematuria presence: with hematuria Urinary tract infection type: site unspecified Qualified Code(s): N39.0 - Urinary tract infection, site not specified; R31.9 - Hematuria, unspecified Code(s): N39.0 - Urinary tract infection, site not specified Status: Acute Assessment and Plan: -continue cefepime - 06/04: Urine grew out E.coli (3) Community acquired bacterial pneumonia: Code(s): J15.9 - Unspecified bacterial pneumonia Status: Acute Assessment and Plan: -stop Azithromycin and Rocephin, transitioned to vancomycin and cefepime. Ordered an MRSA nasal swab, repeat blood cultures, CRP, legionella, mycoplasma, Chlamydia pneumonia and pneumococcal antigen. - Monitor vitals and trend them. (4) Acute kidney injury: Code(s): N17.9 - Acute kidney failure, unspecified Status: Acute Assessment and Plan: -baseline appears to be around 0.8 approximately 1 year ago. -continue to hydrate patient and continue with antibiotic therapy for urinary tract infection and pneumonia. -daily BMP Continue monitor, slight improved (5) Weakness: Code(s): R53.1 - Weakness Status: Acute Assessment and Plan: -Most likely from bacteremia secondary to urinary tract infection and pneumonia. -Will continue with current antibiotic regimen. -PT/OT (6) Diabetes: Qualifiers: Diabetes mellitus type: type 2 Diabetes mellitus care home insulin use: without terminal computer operator use Diabetes mellitus complication status: without complication Qualified Code(s): E11.9 - Type 2 diabetes mellitus without complications Code(s): E11.9 - Type 2 diabetes mellitus without complications Status: Acute Assessment and Plan: -accuchecks, sliding scale, hypoglycemic protocol -Lantus 15 units at HS Subjective Date/time seen: 06/06/21 09:51 Patient continues to receive antibiotics. CRP is still elevated at 12.6. Her WBC is improved. Preliminary reports her blood cultures are negative to date. Pending urine cultures for atypical pneumonias and pending MRSA nasal swab.. Renal function is a slight improvement. No acute events reported by RN during the night. Review of Systems Review of Systems: All systems reviewed & are unremarkable except as noted in HPI and below Exam Narrative: General: No acute distress. Mental Status: Awake, alert and oriented to person, place, and time with clear speech. Slow to respond, requires maximum amount of time Skin: Skin in warm, dry and intact without rashes or lesions. Head: Normocephalic and atraumatic. Eyes: Conjunctivae are clear without exudates or hemorrhage. Sclera is non-icteric. EOM are intact, PERRLA. Ears: The external ear and canal are non-tender and without swelling or discharge. Nose: Nasal mucosa is pink and moist. Septum midline. Nares patent bilaterally. Throat: Oral mucosa pink and moist with good dentition. Tongue midline. Neck: The neck supple without adenopathy. Trachea midline. No JVD. Cardiac: S1 and S2 regular rate and rhythm. No murmurs, gallops, or rubs auscultated. Respiratory: Chest wall symmetric, nontender and without deformity or trauma. Respirations even and unlabored. Lung sounds are diminished with bibasilar crackles to auscultation Abdominal: Abdomen soft, round and non-tender to palpation. Bowel sounds present and normoactive in all 4 quadrants. Spine: Neck and back with grossly normal curvature, no deformity in appearance or signs of trauma. Extremities: Upper and lower
[2021-06-06 11:42] LABS: Glucose Point of Care 181 mg/dl (65-105)
[2021-06-06 14:06] VITALS: BP 129/80; PULSE 72; RESP 16; TEMP 36.6; O2SAT 100
[2021-06-06 16:20] LABS: Glucose Point of Care 213 mg/dl (65-105)
[2021-06-06] MEDS: INSULIN ASPART (*BKC) 100 UNITS/ML SUB-Q (16:24)
[2021-06-06 20:00] VITALS: PULSE 56; RESP 18; O2SAT 96
[2021-06-06 20:20] VITALS: BP 157/52; PULSE 56; RESP 18; TEMP 36.2; O2SAT 96
[2021-06-06] MEDS: INSULIN GLARGINE (*BKC) 100 UNITS/ML 15 UNITS SUB-Q (20:29)
[2021-06-06 22:48] LABS: Glucose Point of Care 184 mg/dl (65-105)
[2021-06-07] VITALS (8 sets, daily range): BP systolic 131–149; BP diastolic 56–64; PULSE 60–75; RESP 15–20; TEMP 36.1–36.6; O2SAT 96–99
[2021-06-07 05:30] LABS: Basophils Absolute Auto 0.1 K/mm3 (0.0-0.1); Basophils Percent Auto 0.3 % (0.2-1.2); Eosinophils Absolute Auto 0.4 K/mm3 (0-0.3); Hemoglobin 9.1 g/dL (12.0-15.0); Immature Granulocyte Absolute 0.72 K/mm3 (0.00-0.031); Immature Granulocyte Percent A 3.9 % (0-0.5); Lymphocytes Percent Auto 13.5 % (18.3-44.2); Mean Corpuscular HGB Conc 31.4 g/dl (32-36); Mean Corpuscular Hemoglobin 27.3 pg (26-34); Mean Corpuscular Volume 87.1 fl (80-100); Mean Platelet Volume 9.2 fl (7.4-10.4); Monocytes Absolute Auto 0.7 K/mm3 (0.1-0.6); Neutrophils Absolute Auto 14.1 K/mm3 (1.3-6.7); Neutrophils Percent Auto 76.3 % (45.5-73.1); Platelet Count Result 279 k/mm3 (150-375); Red Blood Count 3.33 M/mm3 (4.2-5.4); Red Cell Distribution Width 12.8 % (11.5-14.5); White Blood Count 18.5 K/mm3 (4.5-10.0)
[2021-06-07 06:02] LABS: Alanine Aminotransferase 16 U/L (4-35); Albumin Level 2.7 g/dL (3.5-5.1); Alkaline Phosphatase 132 U/L (38-126); Anion Gap 7 mmol/L (8-16); Aspartate Amino Transferase 31 U/L (14-36); Bilirubin,Total 0.3 mg/dL (0.2-1.3); Blood Urea Nitrogen 20 mg/dL (7-17); Calcium 8.2 mg/dL (8.4-10.2); Carbon Dioxide 19 mmol/L (22-30); Chloride 115 mmol/L (98-107); Estimated CRCL calculation 21 ml/min; Estimated Glomerular Filt Rate 27; Glucose 120 mg/dL (65-110); Potassium 3.6 mmol/L (3.4-5.0); Sodium 141 mmol/L (137-145)
--- NOTE | 2021-06-07 07:38 | PM.IMPN ---
Progress Note: A&P Assessment and Plan (1) Bacteremia: Code(s): R78.81 - Bacteremia Status: Acute Assessment and Plan: -prelim blood cultures positive for E. Coli, likely secondary to UTI -sensitivity reports sensitivity to cephalosporins. Patient is currently on cefepime. Repeat blood cultures (06/05/2021), negative to date White count was 23.8 on June 03, today white count is 18.5. No fevers. Staph epidermidis was found in blood culture x 1, E coli was found in urine culture and blood culture x 1. She is on IV vancomycin and IV cefepime. She has received 3 cefepime IV doses since June 05 and 2 vancomycin IV doses since June 05. Repeated her 2nd urine culture today. (2) Urinary tract infection: Qualifiers: Hematuria presence: with hematuria Urinary tract infection type: site unspecified Qualified Code(s): N39.0 - Urinary tract infection, site not specified; R31.9 - Hematuria, unspecified Code(s): N39.0 - Urinary tract infection, site not specified Status: Acute Assessment and Plan: -continue cefepime - 06/04: Urine grew out E.coli Creatinine 1.8 today. White count was 23.8 on June 03, today white count is 18.5. No fevers. E coli was found in urine culture and blood culture x 1. She is on IV vancomycin and IV cefepime. She has received 3 cefepime IV doses since June 05 and 2 vancomycin IV doses since June 05. Repeated her 2nd urine culture today. (3) Community acquired bacterial pneumonia: Code(s): J15.9 - Unspecified bacterial pneumonia Status: Acute Assessment and Plan: -stop Azithromycin and Rocephin, transitioned to vancomycin and cefepime. Ordered an MRSA nasal swab, repeat blood cultures, CRP, legionella, mycoplasma, Chlamydia pneumonia and pneumococcal antigen. -White count was 23.8 on June 03, today white count is 18.5. No fevers. 06/05/21 CRP was 12.6, will repeat in the morning (4) Acute kidney injury: Code(s): N17.9 - Acute kidney failure, unspecified Status: Acute Assessment and Plan: -baseline appears to be around 0.8 approximately 1 year ago. -continue to hydrate patient and continue with antibiotic therapy for urinary tract infection and pneumonia. -daily BMP Creatinine 1.8 on 06/07/21 Tolerating p.o. well, self hydrating orally (5) Weakness: Code(s): R53.1 - Weakness Status: Acute Assessment and Plan: -Most likely from bacteremia secondary to urinary tract infection and pneumonia. Treating for bacteremia and UTI. -Will continue with current antibiotic regimen. -She is participating with PT and OT. (6) Diabetes: Qualifiers: Diabetes mellitus complication status: without complication Diabetes mellitus long wall mining machine tender insulin use: without detention use Diabetes mellitus type: type 2 Qualified Code(s): E11.9 - Type 2 diabetes mellitus without complications Code(s): E11.9 - Type 2 diabetes mellitus without complications Status: Acute Assessment and Plan: -accuchecks, sliding scale, hypoglycemic protocol -Lantus 15 units at HS Glucose 120, controlled Subjective Date/time seen: 06/07/21 07:38 Interval history: Ramila is a 76 yo female w/ history of diabetes mellitus, CVA, and depression, admitted for weakness, UTI, FERNANDO, PNA, and hyperglycemia. She is participating with PT and OT. Treating for bacteremia and UTI. Ramila was sitting up in a chair today when I went to see her. She is a pleasant lady alert oriented times 3-4. She states she does live at home, with her siblings, who do assist her with ADLs. She is feeling better today than when she was admitted, but stated she is still not back to baseline strength. No nausea or vomiting or diarrhea or constipation, Appetite is improving. No fevers. No cough, cp, sob. Does report dysuria and urgency with urination, does use her depends often for incontinence. Sherly
[2021-06-07 08:12] LABS: Glucose Point of Care 120 mg/dl (65-105)
[2021-06-07] MEDS: SERTRALINE HCL 50 MG TABLET 100 MG PO ×2 (08:49→20:26)
[2021-06-07] MEDS: lisinopriL 5 MG TABLET PO (08:49)
[2021-06-07] MEDS: HEPARIN SODIUM 5,000 UNITS/ML VIAL 5000 UNITS SUB-Q ×2 (08:49→20:26)
--- NOTE | 2021-06-07 10:36 | PCCCNOTE ---
On 06/07/21, the student, [Cheryl Monaco ], provided care and [facility]. I have reviewed the student's documentation and agree with the findings.
[2021-06-07 11:31] LABS: Glucose Point of Care 173 mg/dl (65-105)
[2021-06-07 16:29] LABS: Glucose Point of Care 233 mg/dl (65-105)
[2021-06-07] MEDS: INSULIN ASPART (*BKC) 100 UNITS/ML SUB-Q (16:37)
[2021-06-07] MEDS: INSULIN GLARGINE (*BKC) 100 UNITS/ML 15 UNITS SUB-Q (20:27)
[2021-06-07 21:51] LABS: Glucose Point of Care 311 mg/dl (65-105)
[2021-06-08 05:14] VITALS: BP 153/56; PULSE 66; RESP 18; TEMP 36; O2SAT 98
[2021-06-08 05:40] LABS: Basophils Absolute Auto 0.1 K/mm3 (0.0-0.1); Basophils Percent Auto 0.5 % (0.2-1.2); Eosinophils Absolute Auto 0.3 K/mm3 (0-0.3); Hematocrit 29.9 % (37.0-47.0); Hemoglobin 9.5 g/dL (12.0-15.0); Immature Granulocyte Absolute 0.49 K/mm3 (0.00-0.031); Lymphocytes Absolute Auto 2.55 K/mm3 (0.9-3.2); Lymphocytes Percent Auto 15.5 % (18.3-44.2); Mean Corpuscular HGB Conc 31.8 g/dl (32-36); Mean Corpuscular Volume 84.9 fl (80-100); Monocytes Absolute Auto 0.7 K/mm3 (0.1-0.6); Monocytes Percent Auto 4.1 % (2.6-8.5); Neutrophils Absolute Auto 12.4 K/mm3 (1.3-6.7); Neutrophils Percent Auto 74.9 % (45.5-73.1); Platelet Count Result 304 k/mm3 (150-375); Red Blood Count 3.52 M/mm3 (4.2-5.4); Red Cell Distribution Width 12.9 % (11.5-14.5); White Blood Count 16.5 K/mm3 (4.5-10.0)
[2021-06-08 05:54] LABS: Alanine Aminotransferase 17 U/L (4-35); Albumin Level 2.8 g/dL (3.5-5.1); Alkaline Phosphatase 131 U/L (38-126); Anion Gap 8 mmol/L (8-16); Aspartate Amino Transferase 29 U/L (14-36); Bilirubin,Total 0.2 mg/dL (0.2-1.3); Blood Urea Nitrogen 20 mg/dL (7-17); CRP 3.8 mg/dL (<1.0); Calcium 8.3 mg/dL (8.4-10.2); Carbon Dioxide 22 mmol/L (22-30); Chloride 112 mmol/L (98-107); Estimated CRCL calculation 21 ml/min; Estimated Glomerular Filt Rate 27; Glucose 184 mg/dL (65-110); Potassium 3.9 mmol/L (3.4-5.0); Sodium 142 mmol/L (137-145)
[2021-06-08 07:48] LABS: Glucose Point of Care 161 mg/dl (65-105)
[2021-06-08] MEDS: HEPARIN SODIUM 5,000 UNITS/ML VIAL 5000 UNITS SUB-Q ×2 (08:29→21:09)
[2021-06-08] MEDS: lisinopriL 5 MG TABLET PO (08:29)
[2021-06-08] MEDS: SERTRALINE HCL 50 MG TABLET 100 MG PO ×2 (08:29→21:09)
[2021-06-08 11:26] LABS: Glucose Point of Care 202 mg/dl (65-105)
[2021-06-08] MEDS: INSULIN ASPART (*BKC) 100 UNITS/ML SUB-Q (11:30)
--- NOTE | 2021-06-08 14:25 | WPDCDIQUERY2 ---
CDI Query Clarification Request 06/02 Hospitalist documented: Assessment and Plan (1) Bacteremia: Code(s): R78.81 - Bacteremia Status: Acute Assessment and Plan: -prelim blood cultures positive for E. Coli, likely secondary to UTI -sensitivity report pending -continue rocephin for now, considered switching abx but pt is improving clinically. WBC did increase a little today but she has not had any fevers or tachycardia. Overall she is improving clinically so will not change anything for now. 06/04 Hospitalist documented: Patient's vital signs have been stable she is no longer meeting sepsis criteria . Documentation states: -Diagnosis UTI -Positive blood culture for E Coli -Temperature 96.5 on (06/02) -Respirations 22 (06/01) -WBC 23.8 (06/03) -Creatinine 2.30 (06/01) Please clarify if Sepsis was diagnosis on admission with labs and vital signs
[2021-06-08 16:17] LABS: Glucose Point of Care 176 mg/dl (65-105)
--- NOTE | 2021-06-08 16:36 | P.PNIM_ITS ---
Progress Note: A&P Assessment and Plan (1) Bacteremia: Code(s): R78.81 - Bacteremia Status: Acute Assessment and Plan: additional blood culture on 06/01/2021 with a growth of E coli in 1/2 bottles, consistent with urine culture. source of infection felt to be UTI * repeat blood cultures obtained on 06/05/2021 with growth of Staph epidermis in 1/2 bottles. suspect this was a skin contaminant * for unclear reason, an additional set of blood cultures was obtained on 06/05/2021 with no growth to date * patient remains afebrile, no evidence of sepsis. WBC is trending down * continue with cefepime and vancomycin (2) Urinary tract infection: Qualifiers: Hematuria presence: with hematuria Urinary tract infection type: site unspecified Qualified Code(s): N39.0 - Urinary tract infection, site not specified; R31.9 - Hematuria, unspecified Code(s): N39.0 - Urinary tract infection, site not specified Status: Acute Assessment and Plan: initial urine culture on 06/01/2021 with growth of E coli * continue IV cefepime based on susceptibility results * repeat urine culture collected on 06/07/2021 is pending (3) Community acquired bacterial pneumonia: Code(s): J15.9 - Unspecified bacterial pneumonia Status: Acute Assessment and Plan: CXR on presentation showed opacities of the left costophrenic angle, atelectasis favored over pneumonia * urine Legionella and pneumococcal antigens are pending * repeat CXR on 06/05/2021 showed worsened opacity of the lung, again consistent with atelectasis vs pneumonia * additional CXR on 06/06/2021 showed improvement * patient without any evidence of respiratory symptoms, pneumonia seems less likely clinically * continue with incentive spirometry * patient remains on broad-spectrum antibiotics due to above issues (4) Acute kidney injury: Code(s): N17.9 - Acute kidney failure, unspecified Status: Acute Assessment and Plan: creatinine in February 2020 was 0.8. Creatinine was elevated on presentation up to 2.3 * overall improvement with creatinine down to 1.8 * continue oral fluid intake * hold lisinopril * may be related to acute infection vs antibiotics * continue to monitor BMP * consider renal ultrasound if worsening/lack of improvement (5) Weakness: Code(s): R53.1 - Weakness Status: Acute Assessment and Plan: secondary to acute infection * this has improved * implement fall precautions * continue PT/OT (6) Diabetes: Qualifiers: Diabetes mellitus type: type 2 Diabetes mellitus nursing home insulin use: without buttermilk drier operator use Diabetes mellitus complication status: without complication Qualified Code(s): E11.9 - Type 2 diabetes mellitus without complications Code(s): E11.9 - Type 2 diabetes mellitus without complications Status: Acute Assessment and Plan: blood sugars somewhat fluctuant but improved today * continue Accu-Cheks, sliding scale insulin, hypoglycemic protocol * Lantus 15 units qHS * check A1c * continue linagliptin Subjective Date/time seen: 06/08/21 16:36 Interval history: date of service: 06/08/2021 Ramila Adrian is a 76-year-old female with a history of type 2 diabetes mellitus, hypertension, and depression who is seen in follow-up for UTI and bacteremia. Her daughter is present at the bedside. patient states that she had been feeling very poorly for days but now is feeling significantly improved. At this
--- NOTE | 2021-06-08 16:36 | PM.IMPN ---
Progress Note: A&P Assessment and Plan (1) Bacteremia: Code(s): R78.81 - Bacteremia Status: Acute Assessment and Plan: additional blood culture on 06/01/2021 with a growth of E coli in 1/2 bottles, consistent with urine culture. source of infection felt to be UTI repeat blood cultures obtained on 06/05/2021 with growth of Staph epidermis in 1/2 bottles. suspect this was a skin contaminant for unclear reason, an additional set of blood cultures was obtained on 06/05/2021 with no growth to date patient remains afebrile, no evidence of sepsis. WBC is trending down continue with cefepime and vancomycin (2) Urinary tract infection: Qualifiers: Hematuria presence: with hematuria Urinary tract infection type: site unspecified Qualified Code(s): N39.0 - Urinary tract infection, site not specified; R31.9 - Hematuria, unspecified Code(s): N39.0 - Urinary tract infection, site not specified Status: Acute Assessment and Plan: initial urine culture on 06/01/2021 with growth of E coli continue IV cefepime based on susceptibility results repeat urine culture collected on 06/07/2021 is pending (3) Community acquired bacterial pneumonia: Code(s): J15.9 - Unspecified bacterial pneumonia Status: Acute Assessment and Plan: CXR on presentation showed opacities of the left costophrenic angle, atelectasis favored over pneumonia urine Legionella and pneumococcal antigens are pending repeat CXR on 06/05/2021 showed worsened opacity of the lung, again consistent with atelectasis vs pneumonia additional CXR on 06/06/2021 showed improvement patient without any evidence of respiratory symptoms, pneumonia seems less likely clinically continue with incentive spirometry patient remains on broad-spectrum antibiotics due to above issues (4) Acute kidney injury: Code(s): N17.9 - Acute kidney failure, unspecified Status: Acute Assessment and Plan: creatinine in February 2020 was 0.8. Creatinine was elevated on presentation up to 2.3 overall improvement with creatinine down to 1.8 continue oral fluid intake hold lisinopril may be related to acute infection vs antibiotics continue to monitor BMP consider renal ultrasound if worsening/lack of improvement (5) Weakness: Code(s): R53.1 - Weakness Status: Acute Assessment and Plan: secondary to acute infection this has improved implement fall precautions continue PT/OT (6) Diabetes: Qualifiers: Diabetes mellitus type: type 2 Diabetes mellitus residential insulin use: without residential use Diabetes mellitus complication status: without complication Qualified Code(s): E11.9 - Type 2 diabetes mellitus without complications Code(s): E11.9 - Type 2 diabetes mellitus without complications Status: Acute Assessment and Plan: blood sugars somewhat fluctuant but improved today continue Accu-Cheks, sliding scale insulin, hypoglycemic protocol Lantus 15 units qHS check A1c continue linagliptin Subjective Date/time seen: 06/08/21 16:36 Interval history: date of service: 06/08/2021 Ramila Adrian is a 76-year-old female with a history of type 2 diabetes mellitus, hypertension, and depression who is seen in follow-up for UTI and bacteremia. Her daughter is present at the bedside. patient states that she had been feeling very poorly for days but now is feeling significantly improved. At this time, she denies dysuria. She denies fevers or chills. No nausea or vomiting. Her appetite is good. She is getting around well using the walker. She denies any significant weakness, dizziness, lightheadedness. She is having somewhat looser stools. She denies blood in her stools. Denies hematuria. She has no additional concerns. Review of Systems Review of Systems: All systems reviewed & are unremarkable except
[2021-06-08 17:00] VITALS: BP 131/57; PULSE 77; RESP 17; TEMP 35.8; O2SAT 99
[2021-06-08 17:14] LABS: Pneumococcal Antigen Urine Not Detected (Not Detected)
[2021-06-08 20:00] VITALS: PULSE 77; RESP 17; O2SAT 99
[2021-06-08 20:57] VITALS: BP 133/61; PULSE 83; RESP 20; TEMP 36.5; O2SAT 98
[2021-06-08 21:00] VITALS: O2SAT 97
[2021-06-08 21:02] LABS: Glucose Point of Care 255 mg/dl (65-105)
[2021-06-08] MEDS: INSULIN GLARGINE (*BKC) 100 UNITS/ML 15 UNITS SUB-Q (21:09)
[2021-06-09 05:27] VITALS: BP 129/65; PULSE 58; RESP 18; TEMP 35.9; O2SAT 100
[2021-06-09 07:37] LABS: Glucose Point of Care 142 mg/dl (65-105)
[2021-06-09] MEDS: HEPARIN SODIUM 5,000 UNITS/ML VIAL 5000 UNITS SUB-Q ×2 (08:22→20:17)
[2021-06-09] MEDS: SERTRALINE HCL 50 MG TABLET 100 MG PO ×2 (08:22→20:17)
--- NOTE | 2021-06-09 08:57 | PCNWS ---
Weekly nutritional screen. Patient is tolerating current diet with adequate intake. No weight loss reported. No nutritional needs at this time.
[2021-06-09 10:37] LABS: Hemoglobin 12.1 g/dL (12.0-15.0); Mean Corpuscular HGB Conc 30.3 g/dl (32-36); Mean Corpuscular Volume 89.3 fl (80-100); Mean Platelet Volume 9.7 fl (7.4-10.4); Platelet Count Result 381 k/mm3 (150-375); Red Blood Count 4.48 M/mm3 (4.2-5.4); White Blood Count 19.4 K/mm3 (4.5-10.0)
[2021-06-09 10:45] LABS: Anion Gap 14 mmol/L (8-16); Blood Urea Nitrogen 21 mg/dL (7-17); CRP 2.3 mg/dL (<1.0); Calcium 9.5 mg/dL (8.4-10.2); Carbon Dioxide 22 mmol/L (22-30); Chloride 106 mmol/L (98-107); Estimated CRCL calculation 23 ml/min; Estimated Glomerular Filt Rate 29; Glucose 194 mg/dL (65-110); Potassium 4.2 mmol/L (3.4-5.0); Sodium 142 mmol/L (137-145)
[2021-06-09 11:25] LABS: Glucose Point of Care 178 mg/dl (65-105)
[2021-06-09 14:00] VITALS: BP 126/67; PULSE 89; RESP 16; TEMP 36.6; O2SAT 98
--- NOTE | 2021-06-09 16:18 | P.PNIM_ITS ---
Progress Note: A&P Assessment and Plan (1) Bacteremia: Code(s): R78.81 - Bacteremia Status: Acute Assessment and Plan: Initial blood culture on 06/01/2021 with a growth of E coli in 1/2 bottles, consistent with urine culture. source of infection felt to be UTI * repeat blood cultures obtained on 06/05/2021 with growth of Staph epidermis in 1/2 bottles. suspect this was a skin contaminant * second set of blood cultures was obtained on 06/05/2021 with no growth to date - awaiting final culture * patient remains afebrile, no evidence of sepsis. * [place] [id number]. Will repeat tomorrow to ensure not trending up. Further evaluation warranted if continued increase althought patient feels back to baseline and no signs/symptoms to suggest worsening of acute infection or secondary source of infection. CRP with downward trend. Remains afebrile. * continue with cefepime for management of E. coli bacteremia * discontinued vancomycin as staph epidermis felt to be contaminant (2) Urinary tract infection: Qualifiers: Hematuria presence: with hematuria Urinary tract infection type: site unspecified Qualified Code(s): N39.0 - Urinary tract infection, site not specified; R31.9 - Hematuria, unspecified Code(s): N39.0 - Urinary tract infection, site not specified Status: Acute Assessment and Plan: initial urine culture on 06/01/2021 with growth of E coli * continue IV cefepime based on susceptibility results * repeat urine culture collected on 06/07/2021 is negative (3) Community acquired bacterial pneumonia: Code(s): J15.9 - Unspecified bacterial pneumonia Status: Acute Assessment and Plan: CXR on presentation showed opacities of the left costophrenic angle, atelectasis favored over pneumonia * urine pneumococcal antigen negative, legionella pending * repeat CXR on 06/05/2021 showed worsened opacity of the lung, again consistent with atelectasis vs pneumonia * additional CXR on 06/06/2021 showed improvement * patient without any evidence of respiratory symptoms, no fever, tachypnea, hypoxia. Pneumonia seems less likely clinically * continue with incentive spirometry (4) Acute kidney injury: Code(s): N17.9 - Acute kidney failure, unspecified Status: Acute Assessment and Plan: Creatinine in February 2020 was 0.8. Creatinine was elevated on presentation up to 2.3 * overall improvement with creatinine down to 1.7 * continue oral fluid intake * hold lisinopril * may be related to acute infection vs antibiotics * continue to monitor BMP * consider renal ultrasound if worsening/lack of improvement (5) Weakness: Code(s): R53.1 - Weakness Status: Acute Assessment and Plan: secondary to acute infection * this has improved * implement fall precautions * continue PT/OT * home health being arranged per [facility] (6) Diabetes: Qualifiers: Diabetes mellitus type: type 2 Diabetes mellitus mcfp insulin use: without mcfp use Diabetes mellitus complication status: without complication Qualified Code(s): E11.9 - Type 2 diabetes mellitus without complications Code(s): E11.9 - Type 2 diabetes mellitus without complications Status: Acute Assessment and Plan: blood sugars somewhat fluctuant but improved today * continue Accu-Cheks, sliding scale insulin, hypoglycemic protocol * Lantus 15 units qHS * check A1c * continue linagliptin Subjective Date/time seen:
--- NOTE | 2021-06-09 16:18 | PM.IMPN ---
Progress Note: A&P Assessment and Plan (1) Bacteremia: Code(s): R78.81 - Bacteremia Status: Acute Assessment and Plan: Initial blood culture on 06/01/2021 with a growth of E coli in 1/2 bottles, consistent with urine culture. source of infection felt to be UTI repeat blood cultures obtained on 06/05/2021 with growth of Staph epidermis in 1/2 bottles. suspect this was a skin contaminant second set of blood cultures was obtained on 06/05/2021 with no growth to date - awaiting final culture patient remains afebrile, no evidence of sepsis[place] [id number]. Will repeat tomorrow to ensure not trending up. Further evaluation warranted if continued increase althought patient feels back to baseline and no signs/symptoms to suggest worsening of acute infection or secondary source of infection. CRP with downward trend. Remains afebrile. continue with cefepime for management of E. coli bacteremia discontinued vancomycin as staph epidermis felt to be contaminant (2) Urinary tract infection: Qualifiers: Hematuria presence: with hematuria Urinary tract infection type: site unspecified Qualified Code(s): N39.0 - Urinary tract infection, site not specified; R31.9 - Hematuria, unspecified Code(s): N39.0 - Urinary tract infection, site not specified Status: Acute Assessment and Plan: initial urine culture on 06/01/2021 with growth of E coli continue IV cefepime based on susceptibility results repeat urine culture collected on 06/07/2021 is negative (3) Community acquired bacterial pneumonia: Code(s): J15.9 - Unspecified bacterial pneumonia Status: Acute Assessment and Plan: CXR on presentation showed opacities of the left costophrenic angle, atelectasis favored over pneumonia urine pneumococcal antigen negative, legionella pending repeat CXR on 06/05/2021 showed worsened opacity of the lung, again consistent with atelectasis vs pneumonia additional CXR on 06/06/2021 showed improvement patient without any evidence of respiratory symptoms, no fever, tachypnea, hypoxia. Pneumonia seems less likely clinically continue with incentive spirometry (4) Acute kidney injury: Code(s): N17.9 - Acute kidney failure, unspecified Status: Acute Assessment and Plan: Creatinine in February 2020 was 0.8. Creatinine was elevated on presentation up to 2.3 overall improvement with creatinine down to 1.7 continue oral fluid intake hold lisinopril may be related to acute infection vs antibiotics continue to monitor BMP consider renal ultrasound if worsening/lack of improvement (5) Weakness: Code(s): R53.1 - Weakness Status: Acute Assessment and Plan: secondary to acute infection this has improved implement fall precautions continue PT/OT home health being arranged per [facility] (6) Diabetes: Qualifiers: Diabetes mellitus type: type 2 Diabetes mellitus automation consultant insulin use: without automation consultant use Diabetes mellitus complication status: without complication Qualified Code(s): E11.9 - Type 2 diabetes mellitus without complications Code(s): E11.9 - Type 2 diabetes mellitus without complications Status: Acute Assessment and Plan: blood sugars somewhat fluctuant but improved today continue Accu-Cheks, sliding scale insulin, hypoglycemic protocol Lantus 15 units qHS check A1c continue linagliptin Subjective Date/time seen: 06/09/21 16:18 Interval history: date of service: 06/09/2021 Ramila Adrian is a 76-year-old female with a history of type 2 diabetes mellitus, hypertension, and depression who is seen in follow-up for UTI and bacteremia. She is feeling much better overall and feels back to her usual state of health at this time. She endorses no complaints including dysuria, hematuria,diarrhea, nausea, vomiting, fever, chills, rigors,
[2021-06-09 16:29] LABS: Glucose Point of Care 299 mg/dl (65-105)
[2021-06-09] MEDS: INSULIN ASPART (*BKC) 100 UNITS/ML SUB-Q (16:44)
[2021-06-09 19:43] VITALS: BP 126/56; PULSE 76; RESP 17; TEMP 36.3; O2SAT 100
[2021-06-09] MEDS: INSULIN GLARGINE (*BKC) 100 UNITS/ML 15 UNITS SUB-Q (20:19)
[2021-06-09 21:12] LABS: Glucose Point of Care 190 mg/dl (65-105)
[2021-06-09 22:25] VITALS: O2SAT 99
[2021-06-10 02:52] LABS: Legionella pneumophila Ag Ur Not Detected (Not Detected)
[2021-06-10 03:56] VITALS: BP 146/60; PULSE 64; RESP 17; TEMP 36.3; O2SAT 100
[2021-06-10 05:51] LABS: Basophils Absolute Auto 0.1 K/mm3 (0.0-0.1); Basophils Percent Auto 0.4 % (0.2-1.2); Eosinophils Absolute Auto 0.3 K/mm3 (0-0.3); Eosinophils Percent Auto 2.2 % (0-4.4); Hematocrit 32.4 % (37.0-47.0); Hemoglobin 9.9 g/dL (12.0-15.0); Immature Granulocyte Absolute 0.26 K/mm3 (0.00-0.031); Immature Granulocyte Percent A 1.7 % (0-0.5); Lymphocytes Absolute Auto 2.75 K/mm3 (0.9-3.2); Lymphocytes Percent Auto 18.5 % (18.3-44.2); Mean Corpuscular HGB Conc 30.6 g/dl (32-36); Mean Corpuscular Hemoglobin 26.9 pg (26-34); Mean Platelet Volume 9.3 fl (7.4-10.4); Monocytes Absolute Auto 0.7 K/mm3 (0.1-0.6); Monocytes Percent Auto 4.4 % (2.6-8.5); Neutrophils Absolute Auto 10.8 K/mm3 (1.3-6.7); Neutrophils Percent Auto 72.8 % (45.5-73.1); Platelet Count Result 317 k/mm3 (150-375); Red Blood Count 3.68 M/mm3 (4.2-5.4); Red Cell Distribution Width 12.8 % (11.5-14.5); White Blood Count 14.9 K/mm3 (4.5-10.0)
[2021-06-10 06:02] LABS: Anion Gap 8 mmol/L (8-16); Blood Urea Nitrogen 22 mg/dL (7-17); Calcium 8.9 mg/dL (8.4-10.2); Carbon Dioxide 24 mmol/L (22-30); Chloride 109 mmol/L (98-107); Estimated CRCL calculation 23 ml/min; Estimated Glomerular Filt Rate 29; Glucose 84 mg/dL (65-110); Potassium 4.4 mmol/L (3.4-5.0); Sodium 141 mmol/L (137-145)
[2021-06-10 08:02] LABS: Glucose Point of Care 79 mg/dl (65-105)
[2021-06-10 08:34] LABS: Hemoglobin A1C 8.6 % (<5.7)
[2021-06-10] MEDS: SERTRALINE HCL 50 MG TABLET 100 MG PO (08:47)
[2021-06-10] MEDS: HEPARIN SODIUM 5,000 UNITS/ML VIAL 5000 UNITS SUB-Q (08:47)
[2021-06-10 09:24] VITALS: O2SAT 99
--- NOTE | 2021-06-10 10:55 | P.DS_ITS ---
DS: Admitting Diagnosis Discharge Date 06/10/2021 <VANESSA Shaw-C - Last Filed: 06/13/21 08:58> Admitting Diagnosis Urinary tract infection <VANESSA Shaw-C - Last Filed: 06/13/21 08:58> DS: Discharge Diagnosis Discharge Diagnosis (1) Septicemia: Code(s): A41.9 - Sepsis, unspecified organism <Jaclyn Moeller PA-C - Last Filed: 06/13/21 08:58> Status: Acute <Jaclyn Moeller PA-C - Last Filed: 06/13/21 08:58> Assessment and Plan: Initial blood culture on 06/01/2021 with a growth of E coli in 1/2 bottles, consistent with urine culture. source of infection felt to be UTI * Patient was initially septic evident by tachypnea, marked leukocytosis, and acute kidney failure. Sepsis resolved. Remained afebrile. * repeat blood cultures obtained on 06/05/2021 with growth of Staph epidermis in 1/2 bottles for which Vancomycin was initiated. Vanc was discontinued as this was felt to be a skin contaminant * second set of blood cultures was obtained on 06/05/2021 with no growth after 4 days. Will monitor final cultures. * She did have persistent leukocytosis with overall downward trend. Repeat CBC in 1 week to ensure continued improvement/resolution. * Managed with IV cefepime during admission * Continue PO Augmentin based on susceptibility results to complete 14 days of antibiotic therapy. <VANESSA Shaw-C - Last Filed: 06/13/21 08:58> (2) Urinary tract infection: Qualifiers: Hematuria presence: with hematuria Urinary tract infection type: site unspecified Qualified Code(s): N39.0 - Urinary tract infection, site not specified; R31.9 - Hematuria, unspecified <Jaclyn Moeller PA-C - Last Filed: 06/13/21 08:58> Code(s): N39.0 - Urinary tract infection, site not specified <Jaclyn Moeller PA-C - Last Filed: 06/13/21 08:58> Status: Acute <Jaclyn Moeller PA-C - Last Filed: 06/13/21 08:58> Assessment and Plan: Initial urine culture on 06/01/2021 with growth of E coli * As above, managed with IV cefepime. * Continue p.o. Augmentin as above * Repeat urine culture collected on 06/07/2021 was negative <Jaclyn Moeller PA-C - Last Filed: 06/13/21 08:58> (3) Community acquired bacterial pneumonia: Code(s): J15.9 - Unspecified bacterial pneumonia <Jaclyn Moeller PA-C - Last Filed: 06/13/21 08:58> Status: Ruled-out <Jaclyn Moeller PA-C - Last Filed: 06/13/21 08:58> Assessment and Plan: Ruled out. CXR on presentation showed opacities of the left costophrenic angle, atelectasis favored over pneumonia * urine pneumococcal and legionella antigen negative * repeat CXR on 06/05/2021 showed worsened opacity of the lung, again consistent with atelectasis vs pneumonia * additional CXR on 06/06/2021 showed improvement * imaging and clinical picture felt to be consistent with atelectasis. Pneumonia unlikely. * continue incentive spirometry, increased activity <Jaclyn Moeller PA-C - Last Filed: 06/13/21 08:58> (4) Acute kidney injury: Code(s): N17.9 - Acute kidney failure, unspecified <Jaclyn Moeller PA-C - Last Filed: 06/13/21 08:58> Status: Acute <Jaclyn Moeller PA-C - Last Filed: 06/13/21 08:58> Assessment and Plan: Creatinine in February 2020 was 0.8. Creatinine was elevated on presentation up to 2.3 * likely due to acute infection * overall improvement with creatinine down to 1.7 at discharge * repeat BMP in 1 week * encouraged to continue adequate oral fluid intake <LUCAS Shaw
--- NOTE | 2021-06-10 10:55 | PM.DS ---
DS: Admitting Diagnosis Discharge Date 06/10/2021 <Jaclyn Moeller PA-C - Last Filed: 06/13/21 08:58> Admitting Diagnosis Urinary tract infection <Jaclyn Moeller PA-C - Last Filed: 06/13/21 08:58> DS: Discharge Diagnosis Discharge Diagnosis (1) Septicemia: Code(s): A41.9 - Sepsis, unspecified organism <Jaclyn Moeller PA-C - Last Filed: 06/13/21 08:58> Status: Acute <Jaclyn Moeller, PA-C - Last Filed: 06/13/21 08:58> Assessment and Plan: Initial blood culture on 06/01/2021 with a growth of E coli in 1/2 bottles, consistent with urine culture. source of infection felt to be UTI Patient was initially septic evident by tachypnea, marked leukocytosis, and acute kidney failure. Sepsis resolved. Remained afebrile. repeat blood cultures obtained on 06/05/2021 with growth of Staph epidermis in 1/2 bottles for which Vancomycin was initiated. Vanc was discontinued as this was felt to be a skin contaminant second set of blood cultures was obtained on 06/05/2021 with no growth after 4 days. Will monitor final cultures. She did have persistent leukocytosis with overall downward trend. Repeat CBC in 1 week to ensure continued improvement/resolution. Managed with IV cefepime during admission Continue PO Augmentin based on susceptibility results to complete 14 days of antibiotic therapy. <Jaclyn Moeller PA-C - Last Filed: 06/13/21 08:58> (2) Urinary tract infection: Qualifiers: Hematuria presence: with hematuria Urinary tract infection type: site unspecified Qualified Code(s): N39.0 - Urinary tract infection, site not specified; R31.9 - Hematuria, unspecified <Jaclyn Moeller PA-C - Last Filed: 06/13/21 08:58> Code(s): N39.0 - Urinary tract infection, site not specified <Jaclyn Moeller, PA-C - Last Filed: 06/13/21 08:58> Status: Acute <Jaclyn Moeller PA-C - Last Filed: 06/13/21 08:58> Assessment and Plan: Initial urine culture on 06/01/2021 with growth of E coli As above, managed with IV cefepime. Continue p.o. Augmentin as above Repeat urine culture collected on 06/07/2021 was negative <LUCAS ShawC - Last Filed: 06/13/21 08:58> (3) Community acquired bacterial pneumonia: Code(s): J15.9 - Unspecified bacterial pneumonia <Jaclyn Moeller PA-C - Last Filed: 06/13/21 08:58> Status: Ruled-out <Jaclyn Moeller PA-C - Last Filed: 06/13/21 08:58> Assessment and Plan: Ruled out. CXR on presentation showed opacities of the left costophrenic angle, atelectasis favored over pneumonia urine pneumococcal and legionella antigen negative repeat CXR on 06/05/2021 showed worsened opacity of the lung, again consistent with atelectasis vs pneumonia additional CXR on 06/06/2021 showed improvement imaging and clinical picture felt to be consistent with atelectasis. Pneumonia unlikely. continue incentive spirometry, increased activity <Jaclyn Moeller PA-C - Last Filed: 06/13/21 08:58> (4) Acute kidney injury: Code(s): N17.9 - Acute kidney failure, unspecified <Jaclyn Moeller PA-C - Last Filed: 06/13/21 08:58> Status: Acute <Jaclyn Moeller PA-C - Last Filed: 06/13/21 08:58> Assessment and Plan: Creatinine in February 2020 was 0.8. Creatinine was elevated on presentation up to 2.3 likely due to acute infection overall improvement with creatinine down to 1.7 at discharge repeat BMP in 1 week encouraged to continue adequate oral fluid intake <VANESSA Shaw-C - Last Filed: 06/13/21 08:58> (5) Weakness: Code(s): R53.1 - Weakness <Jaclyn Moeller PA-C - Last Filed: 06/13/21 08:58> Status: Resolved <Jaclyn Moeller PA-C - Last Filed: 06/13/21 08:58> Assessment and Plan: secondary to acute infection resolved patient participated in therapy and was amb
[2021-06-10 11:28] LABS: Glucose Point of Care 179 mg/dl (65-105)
== END 2021-06-10 13:12 | disposition home health service (06) | DRG 690 ==
LOC: ANHED 17:44 → ANH2MED 18:21
PROVIDERS: Nurse Practitioner Adult Health; Nurse Practitioner Family; Physician Assistant; Admitting Provider Hospitalist; Emergency Provider Emergency Medicine; Visit Provider Family Medicine
DX: N39.0 Urinary tract infection, site not specified (principal); N17.9 Acute kidney failure, unspecified; J98.11 Atelectasis; R53.1 Weakness; F32.9 Major depressive disorder, single episode, unspecified; Z82.49 Family history of ischemic heart disease and other diseases of the circulatory system; Z80.8 Family history of malignant neoplasm of other organs or systems; Z86.73 Personal history of transient ischemic attack (TIA), and cerebral infarction without residual deficits; R31.9 Hematuria, unspecified; B96.20 Unspecified Escherichia coli [E. coli] as the cause of diseases classified elsewhere; E11.65 Type 2 diabetes mellitus with hyperglycemia; Z79.899 Other long term (current) drug therapy
CPT/HCPCS: 36415; 36600; 70450; 71045; 74176; 80048; 80053; 81001; 82010; 82805; 82948; 83036; 83605; 83735; 85025; 85027; 85055; 86140; 87040; 87077; 87081; 87086; 87088; 87186; 87449; 87899; 93005; 94667; 96361; 96365; 96367; 96372; 97110; 97116; 97161; 97166; 97530; 97535; 99285; A9270; G0378; J0456; J0692; J0696; J1644; J1815; J3370; J7030; J7040

== ENCOUNTER 2023-09-03 15:32 | Outpatient (CLI) | payer MEDICARE, SELFPAY ==
[2023-09-03 15:57] LABS: Basophils Absolute Auto 0.1 K/mm3 (0.0-0.1); Basophils Percent Auto 0.5 % (0.2-1.2); Eosinophils Absolute Auto 0.2 K/mm3 (0-0.3); Eosinophils Percent Auto 1.9 % (0-4.4); Hematocrit 40.7 % (37.0-47.0); Hemoglobin 12.7 g/dL (12.0-15.0); Immature Granulocyte Absolute 0.05 K/mm3 (0.00-0.031); Immature Granulocyte Percent A 0.4 % (0-0.5); Lymphocytes Absolute Auto 3.86 K/mm3 (0.9-3.2); Lymphocytes Percent Auto 30.1 % (18.3-44.2); Mean Corpuscular HGB Conc 31.2 g/dl (32-36); Mean Corpuscular Volume 86.6 fl (80-100); Mean Platelet Volume 9.9 fl (7.4-10.4); Monocytes Absolute Auto 0.6 K/mm3 (0.1-0.6); Monocytes Percent Auto 4.8 % (2.6-8.5); Neutrophils Percent Auto 62.3 % (45.5-73.1); Platelet Count Result 309 k/mm3 (150-375); White Blood Count 12.8 K/mm3 (4.5-10.0)
[2023-09-03 16:50] LABS: Alanine Aminotransferase 10 U/L (6-35); Albumin Level 4.2 g/dL (3.5-5.1); Alkaline Phosphatase 92 U/L (38-126); Anion Gap 15 mmol/L (4-12); Aspartate Amino Transferase 21 U/L (14-36); Blood Urea Nitrogen 25 mg/dL (7-17); CRP < 0.5 mg/dL (<1.0); Calcium 9.6 mg/dL (8.4-10.2); Carbon Dioxide 19 mmol/L (22-30); Chloride 106 mmol/L (98-107); Estimated Glomerular Filt Rate 34; Glucose 150 mg/dL (65-110); Potassium 4.1 mmol/L (3.4-5.0); Sodium 140 mmol/L (137-145)
[2023-09-03 17:29] LABS: Erythrocyte Sedimentation Rate 20 mm/hr (0-20)
[2023-09-09 07:04] LABS: BCR/abl P190 NOT DETECTED; BCR/abl P210 NOT DETECTED; BCR/abl Source PERIPHERAL
== END 2023-09-03 15:33 | disposition home or self-care (01) ==
LOC: ANHLAB 15:37
PROVIDERS: Visit Provider Internal Medicine Hematology & Oncology
DX: D72.829 Elevated white blood cell count, unspecified (principal)
CPT/HCPCS: 36415; 80053; 85025; 85652; 86140; 88184

== ENCOUNTER 2023-10-04 13:54 | Outpatient (RCR) | payer MEDICARE, SELFPAY ==
--- NOTE | 2023-10-04 15:43 | OTOPEVDC ---
Assessment and note entered by RAYMUNDO Elizabeth/Calvin, CHT Evaluation Information Subjective Information Patient referred to our clinic for a mobility device evaluation. Diagnoses include chronic compression fracture L4, L3-L4 severe disc space narrowing and pinched nerves, RA, neuropathy. Please refer to 12 page seating/mobility evaluation form for details. Reported Pain Level Pain Score 10: Self Report Assessment OT Clinical Summary Ramila is unable to safety and independently ambulate household distances due to her current impairments of weakness, pain, fatigue, and decreased functional standing tolerance and balance. Patient frequently falls, experiencing 2 falls a month, contributing to her inability to utilize a walker or a cane. She demonstrates significant functional mobility limitations that impair their ability to safely participate in mobility-related activities of daily living ( MRADLs). Patient is not safe or functional with an optimally fitted walker or cane due to pain, weakness, and poor balance. Patient is unable to propel a properly fitted manual wheelchair due to back pain, upper body weakness, as well as the need for tilt and recline feature due to history of pressure sores and patient's inability to perform adequate pressure relief. Ramila is unable to safely transfer onto a scooter and scooter also does not provide necessary tilt or recline feature. Ramila requires a power wheelchair because she is unable to participate or complete household mobility or daily tasks with a cane, walker, manual w/c, or scooter. This patient has been evaluated and demonstrates the gross motor, fine motor, and cognitive ability to safely operate the power wheelchair. Without the use of a power wheelchair, this patient would be confined to bed. With the use of a power wheelchair with tilt, recline, and AFP features, this patient will be able to participate in MRADLs with improved safely and less pain. Plan of Care Treatment Frequency and Referred for evaluation only. D/C. Duration
== END 2023-10-07 10:19 | disposition home or self-care (01) ==
LOC: ANHOT 13:54
PROVIDERS: PCP Nurse Practitioner; Visit Provider Nurse Practitioner
DX: R41.0 Disorientation, unspecified (principal); R53.1 Weakness; R41.89 Other symptoms and signs involving cognitive functions and awareness; Z86.73 Personal history of transient ischemic attack (TIA), and cerebral infarction without residual deficits; M48.56XA Collapsed vertebra, not elsewhere classified, lumbar region, initial encounter for fracture; M06.9 Rheumatoid arthritis, unspecified; G62.9 Polyneuropathy, unspecified
CPT/HCPCS: 97167